=== PATIENT | female | born 1960 | race Caucasian/White ===

== ENCOUNTER 2025-01-26 12:51 | Outpatient (REF) | payer MEDICARE, MEDICAID, SELFPAY ==
--- OUTSIDE RECORDS SUMMARY | 2025-01-23 20:10 | XMS_ITS | Continuity of Care Document ---
Author Organization [facility] Address [address] [place] [address] Phone Care Team Providers Care Cable Engineer Name Role Phone Harry Carlos PA-C Emergency Provider [phone] Wendi Curtis NP-C Primary Care Provider Vladimir Hernandez MD Admit Provider Amrita Ayala MD Attending Provider Jossie Vega APRN Attending Provider Sundar Silva DO Emergency Provider Tramaine Ziegler MD Admit Provider Tramaine Ziegler MD Attending Provider [phone] Chris Pham MD Admit Provider [phone] Care Teams Patient Care Team Team Status: Active Member Role Status Dates Wendi Curtis OFFICE MACHINE SERVICER-C Primary Care Provider Active Visit Care Team Team Status: Inactive Member Role Status Dates Harry Carlos PA-C Emergency Provider Active Start: October 23, 2024 End: October 26, 2024 Wendi Curtis OFFICE MACHINE SERVICER-C Primary Care Provider Active Start: October 23, 2024 End: October 26, 2024 Vladimir Hernandez MD Admit Provider Active S tart: October 23, 2024 End: October 26, 2024 Amrita Ayala MD Attending Provider Active Start: October 23, 2024 End: October 26, 2024 Visit Care Team Team Status: Inactive Member Role Status Dates Wendi Curtis OFFICE MACHINE SERVICER-C Primary Care Provider Active Start: November 24, 2024 End: November 24, 2024 Jossie Vega APRN Attending Provider Active Start: November 24, 2024 End: November 24, 2024 Visit Care Team Team Status: Inactive Member Role Status Dates Wendi Curtis NP-C Primary Care Provider Active Start: December 27, 2024 End: December 29, 2024 Sundar Silva DO Emergency Provider Active Start: December 27, 2024 End: December 29, 2024 Tramaine Ziegler MD Admit Provider Active Start: December 27, 2024 End: December 29, 2024 Tramaine Ziegler MD Attending Provider Active St art: December 27, 2024 End: December 29, 2024 Visit Care Team Team Status: Inactive Member Role Status Dates Wendi Curtis NP-C Primary Care Provider Active Start: January 11, 2025 End: January 17, 2025 Sundar Silva DO Emergency Provider Active Start: January 11, 2025 End: January 17, 2025 Chris Pham MD Admit Provider Active Start: January 11, 2025 End: January 17, 2025 Amrita Ayala MD Attending Provider Active Start: January 11, 2025 End: January 17, 2025 Chief Complaint and Reason for Visit Chief Complaint Admit Date fall October 23, 2024 9:15p m Left leg, right leg, bilateral heels Aug ust 2024 2:29pm Shortness of Breath December 27, 2024 11:12am diff breathing January 11, 2025 11:06am Reason for Visit Admit Date Acute hypercapnic respiratory failure Ju 2024 9:15pm Acute hypokalemia October 23, 2024 9:15p m Acute kidney injury October 23, 2024 9:15p m Chronic respiratory failure with hypoxia and hypercapnia October 23, 2024 9:15pm Leukocytosis October 23, 2024 9:15p m Nicotine addiction October 23, 2024 9:15p m Pneumonia October 23, 2024 9:15p m Pulmonary hypertension October 23, 2024 9: 15pm UTI (urinary tract infection) October 23, 2024 9:15pm Wound of right lower extremity October 23, 2024 9:15pm Leg ulcer, left November 24, 2024 2:2 9pm Nonadherence to medical treatment November 24, 2024 2:29pm PAD (peripheral artery disease) November 242024 2:29pm PVD (peripheral vascular disease) November 24, 2024 2:29pm Ulcer of left heel November 24, 2024 2:2 9pm Ulcer of right heel November 24, 2024 2:2 9pm Hyperkeratosis November 24, 2024 2:2 9pm Lymphedema of both lower extremities Aug us2024 2:29pm Nicotine abuse November 24, 2024 2:2 9pm Obesity November 24, 2024 2:2 9pm Papillomatosis November 24, 2024 2:2 9pm Tobacco abuse November 24, 2024 2:2 9pm Diabetes mellitus November 24, 2024 2:2 9pm Heart failure November 24, 2024 2:2 9pm Ulcer of right lower leg November 24 2:29pm Acute exacerbation of chroni c obstructive pulmonary disease December 27, 2024 11:12am Community acquired pneumonia December 272024 11:12am Diabetes mellitus December 27, 2024 11:12am Heart failure December 27, 2024 11:12am [facility]hed[facility] of both lower [facility] 11:12am Respiratory failure December 27, 2024 11:12am Chronic respiratory failure with hypoxia January 11, 2025 11:06am COPD exacerbation January 11, 2025 11:06am Dyspnea January 11, 2025 11:06am Unable to care for self January 11, 2025 11:06am Reason for Referral Referring Provider Name Referring Provider Address Referring Provider Phone Referral Date Requested Appointment Date Referral Reason Tramaine Toney [address] [facility] [address] Work Phone: Post hospital appointment. Transportation will pick you up at this time. Tatiana Shepherd [address] [facility] [address] Work Phone: Please arrange a follow-up appointment once discharged from SNF. Vladimir Hernandez [address] [facility] [address] Work Phone: Post hospital appointment. Please call to reschedule if needed. Vladimir Hernandez [address] [id number] Work Phone: RLE wound Post hospi pina appointment. Transportation will pick you up at this time. Please arr garrick a follow-up appointment once discharged from SNF. Post hospi pina appointment. Please call to reschedule if needed. RLE wound Allergies, Adverse Reactions, Alerts Allergen Type Severity Reaction Last Updated Verified Status bee venom protein (honey bee) Allergy Unknown Anaphylaxis January 11, 2025 8:42am Yes Active Iodinated Contrast Media Allergy Unknown Anaphylaxis January 11, 2025 8:42am Yes Active Social History Smoking Status Status Start Date End Date Date of Observa tion Smokes tobacco daily (finding) January 11, 2025 8:43am Observation Status Observation Response Date of Response Legal Sex Female (finding) Sex Assigned At Female [id number] Social History Assessments Assessment Value Date Recorded SDOH Follow up December 28, 2024 4:20pm Question Answer Date Recorded Has the SDOH screening changed since admission? N December 28, 2024 4:20pm Assessment Value Date Recorded SDOH Follow up January 17, 2025 12:02pm Question Answer Date Recorded Has the SDOH screening changed since admission? N January 17, 2025 12:02pm Assessment Value Date Recorded SDOH Follow up October 26, 2024 1 2:00pm Question Answer Date Recorded Has the SDOH screening changed since admission? N October 26, 2024 12:00pm Family History Relationship Condition Age at Onset Recorded Date/T dustin mother Malignant neoplasm of skin Unknown grandparent Cerebrovascular accident (CVA) Unknown grandparent Heart disease Unknown mother Diabetes mellitus Unknown father Malignant neoplasm Unknown Unknown family member Unknown mother Hypertension Unknown Asthma Unknown Diabetes mellitus Unknown son Hypertension Unknown sister Diabetes mellitus Unknown Hypertension Unknown Problems Active Problems Medical Problem Onset Date Status DIAMANTE (acute kidney injury) Unknown Active Leg ulcer, left Unknown Active Ulcer of left heel Unknown Active Left against medical advice Unknown Acti ve UTI (urinary tract infection) Unknown Ac tive Acute hypotension Unknown Active COVID-19 virus infection Unknown Active Nicotine abuse Unknown Active Lower extremity edema Unknown Active MURRAY (obstructive sleep apnea) Unknown Ac tive Cellulitis of leg, right Unknown Active Chronic respiratory failure with hypoxia Unknown Active Acute hypercapnic respiratory failure Unknown Active Impaired mobility and ADLs Unknown Activ e Severe protein-calorie malnutrition Unknown Active Burn of abdomen wall Unknown Active Epistaxis Unknown Active Diabetic infection of right foot Unknown Active Diabetes mellitus Unknown Active Morbid obesity Unknown Active Unable to care for self Unknown Active Chronic hepatitis C without hepatic coma Unknown Active Acute and chronic respiratory failure Unknown Active CHF (congestive heart failure) Unknown A ctive Papillomatosis Unknown Active Anxiety Unknown Active Nonadherence to medical treatment Unknown Active Bacteremia Unknown Active Opioid use disorder Unknown Active Depression Unknown Active Dyspnea Unknown Active Ulcer of right heel Unknown Active Ulcer of right leg Unknown Active Rash and nonspecific skin eruption Unknown Active Atherosclerotic cardiovascular disease Unknown Active Photodermatitis due to sun Unknown Activ e Chronic acquired lymphedema Unknown Acti ve Chronic acquired lymphedema Unknown Acti ve Ventral hernia Unknown Active Hypercarbia Unknown Active Hyperglycemia Unknown Active Hypoglycemia Unknown Active Hyperkeratosis Unknown Active Leukocytosis Unknown Active Lymphedema of both lower extremities Unknown Active Weakness of both lower extremities Unknown Active Neuropathy Unknown Active Rhabdomyolysis Unknown Active Opioid use disorder, severe, dependence Unknown Active Tobacco abuse Unknown Active PVD (peripheral vascular disease) Unknown Active Acute metabolic encephalopathy Unknown A ctive Hypoxia Unknown Active PAD (peripheral artery disease) Unknown Active Head injury Unknown Active Dental abscess Unknown Active Incarcerated ventral hernia Unknown Acti ve On home oxygen therapy Unknown Active ROJAS (nonalcoholic steatohepatitis) Unknown Active COPD exacerbation Unknown Active COPD exacerbation Unknown Active Nausea and vomiting Unknown Active Elbow fracture, right Unknown Active Bulla Unknown Active Chest pain Unknown Active Chest pain Unknown Active Hypertension Unknown Active Fall Unknown Active Obesity Unknown Active Laceration of lower leg, right Unknown A ctive Candidal intertrigo Unknown Active Smoker Unknown Active Acute hypokalemia Unknown Active Inactive/Resolved Problems Medical Problem Onset Date Status Acute kidney injury Unknown Resolved Acute kidney injury Unknown Resolved Bacteremia due to Streptococcus Unknown Resolved Ulcer of left lower leg Unknown Resolved Acute exacerbation of chronic obstructive airway s disease Unknown Resolved Urinary tract infection Unknown Resolved UTI (urinary tract infection) Unknown Re solved UTI (urinary tract infection) Unknown Re solved UTI (urinary tract infection) Unknown Re solved UTI (urinary tract infection) Unknown Re solved UTI (urinary tract infection) Unknown Re solved Acute cystitis Unknown Resolved Crushing injury of index finger Unknown Resolved Nicotine addiction Unknown Resolved Group B streptococcal infection Unknown Resolved Acute hypercapnic respiratory failure Unknown Resolved Acute hypercapnic respiratory failure Unknown Resolved Acute encephalopathy Unknown Resolved COPD with exacerbation Unknown Resolved Fatigue Unknown Resolved Diabetes mellitus Unknown Resolved Laceration Unknown Resolved Heart failure Unknown Resolved Ventral hernia with bowel obstruction Unknown Resolved Fissure in skin Unknown Resolved Ulcer Unknown Resolved (HFpEF) heart failure with preserved ejection fr action Unknown Resolved Diabetic foot ulcer Unknown Resolved Diabetic foot ulcer Unknown Resolved CHF (congestive heart failure) Unknown R esolved Myocardial injury Unknown Resolved Hypoxemia Unknown Resolved Bacterial pneumonia Unknown Resolved Pulmonary hypertension Unknown Resolved Traumatic seroma of left lower leg Unknown Resolved Wound of right lower extremity Unknown R esolved Septic shock Unknown Resolved Septic shock Unknown Resolved Acute and chronic respiratory failure with hyper capnia Unknown Resolved Acute and chronic respiratory failure with hyper capnia Unknown Resolved Leukocytosis Unknown Resolved CAP (community acquired pneumonia) Unknown Resolved CAP (community acquired pneumonia) Unknown Resolved Community acquired pneumonia Unknown Res olved Lymphedema of both lower extremities Unknown Resolved Severe sepsis Unknown Resolved Acute respiratory failure with hypoxemia Unknown Resolved Ulcer of right lower leg Unknown Resolve d Ulcer of right lower leg Unknown Resolve d Respiratory failure Unknown Resolved Elevated troponin Unknown Resolved Chronic respiratory failure with hypoxia and hyp ercapnia Unknown Resolved Acute on chronic respiratory failure with hypoxi a and hypercapnia Unknown Resolved CO2 narcosis Unknown Resolved Weakness Unknown Resolved Wound, open, finger Unknown Resolved Hypoxia Unknown Resolved Sepsis Unknown Resolved Sepsis Unknown Resolved Gabapentin overdose Unknown Resolved UTI (urinary tract infection) following delivery Unknown Resolved Small bowel obstruction Unknown Resolved Altered mental status Unknown Resolved Altered mental status Unknown Resolved COPD (chronic obstructive pulmonary disease) Unk nown Resolved COPD (chronic obstructive pulmonary disease) Unk nown Resolved Acute exacerbation of chronic obstructive pulmon emilia disease Unknown Resolved Acute exacerbation of chroni c obstructive pulmonary disease (COPD) Unknown Resolved Leg wound, right Unknown Resolved Hypotension Unknown Resolved Pneumonia Unknown Resolved Laceration of scalp Unknown Resolved Laceration of index finger Unknown Resol eleni Contusion of knee, left Unknown Resolved Pickwickian syndrome Unknown Resolved Hypokalemia Unknown Resolved Acute hypokalemia Unknown Resolved Hypomagnesemia Unknown Resolved Medications Medication Status Dose Units Route Directions Qty Days St art Date Stop Date End Date Instructions Adherence Cephalexin (Keflex) 500 mg capsule Discont inued 1 GM PO Twice daily 40 10 September 08, 2017 12:00a m September 17, 2017 12:00 am September 18, 2017 12:03 am Promethazin e 25 mg tablet Discont inued 25 MG PO Q4H as needed for VOMITING September 10, 2017 12:00a m Wilbert velasco 2020 11:46 pm Buprenorphi ne-Naloxone (Suboxone) 8-2 mg film Discont inued 1 FILM BUCCAL Q12H September 11, 2017 3:13am Novem ehsan 2019 7:17p m Metformin 850 mg tablet Discont inued 850 MG PO Twice daily 60 September 12, 2017 12:00a m Febru emilia , 2019 1:21p m Prednisone 10 mg Tablet Discont inued October 23, 2017 12:00a m [facility] 2018 1:21p m Atorvastati n (Lipitor) 10 mg tablet Discont inued 10 MG PO Daily July 18, 2019 12:00a m [facility] 2021 10:11 am Glipizide (Glucotrol) 10 mg tablet Discont inued 10 MG PO Daily July 18, 2019 12:00a m [facility] 2021 10:11 am Alprazolam 0.25 mg tablet Discont inued 0.25 MG PO Daily July 18, 2019 12:00a m [facility] 2019 4:58p m Promethazin e 25 mg tablet Discont inued July 18, 2019 12:00a m [facility] 2019 2:44p m Omeprazole 20 mg capsule,del ayed release(DR/ EC) Discont inued 20 MG PO Daily July 18, 2019 12:00a [facility] 2021 10:11 am Metoprolol Succinate 25 mg tablet extended release 24 hr Discont inued 25 MG PO Daily July 18, 2019 12:00a m [facility] 2021 10:11 am Pregabalin 150 mg capsule Discont inued 150 MG PO Three times daily July 18, 2019 12:00a m [facility] 2019 4:59p m Ondansetron 4 mg tablet,disi ntegrating Discont inued 4 MG PO Three times daily as needed for nausea 6 July 18, 2019 10:23a m [facility] 2019 2:43p m Albuterol Sulfate 2.5 mg /3 mL (0.083 %) solution for nebulizatio n Discont inued 1.25 MG INHALA TION every 6 to 8 hours as needed for shortness of breath or wheezing July 18, 2019 12:00a m Novem 2019 7:15p m Clindamycin Hcl 300 mg capsule Discont inued 300 MG PO Three times daily Novemb er 2019 1:00am September 21, 2020 2:04p m Prednisone 10 mg tablet Discont inued 10 MG PO Daily 39 2020 1:00am September 21, 2020 2:05p m 60mg daily for three days, 40mg daily for three days, 20mg daily for three days, 10mg daily for three days. Cetirizine 10 mg Tablet Discont inued 10 MG PO Daily 2020 12:00a m Augus t 2021 10:12 am Hydroxyzine Hcl 50 mg Tablet Discont inued 50 MG PO Four times daily as needed for Allergy Symptoms 2020 12:00a m Augus t 2021 10:11 am Famotidine 20 mg Tablet Discont inued 20 MG PO Daily at bedtime as needed for Acid Reflux 2020 12:00a m [facility] 2020 1:24a m Ammonium Lactate 12 % Cream Discont inued 1 APPLIC TOPICA L Twice daily 2020 12:00a m Septe mber 2021 4:04p m Albuterol Sulfate (Proair Hfa) 90 mcg/actuati on Hfa Aerosol Inhaler Discont inued 2 PUFF INHALA TION Q6H as needed for Shortness Of Breath Dec 2020 12:00a m Augus t 2021 9:45a m Losartan 100 mg Tablet Discont inued 100 MG PO Daily 2020 12:00a m Augus t 2021 10:11 am Cholecalcif ghazal (Vitamin D3) (Vitamin D3) 50 mcg (2,000 unit) Capsule Discont inued 50 MCG PO Daily 2020 12:00a m Augus t 2021 10:11 am Fluticasone -Umeclidin- Vilanter (Trelegy Ellipta) 200-62.5-25 mcg blister with device Discont inued 1 INH INHALA TION Daily 2020 12:00a m Augus t 2021 7:12a m Sulfamethox azole-Trime thoprim (Bactrim Ds) 800-160 mg tablet Discont inued 1 TAB PO Twice daily 14 7 Dec 2020 12:00a m Octob er 2020 2:09p m Clindamycin Hcl 300 mg capsule Discont inued 300 MG PO Four times daily Dece er 2020 1:00am Decem ehsan 2020 1:23a m Amoxicillin -Pot Clavulanate (Augmentin) 875-125 mg tablet Discont inued 1 TAB PO Twice daily 20 Decemb er 2020 1:00am Janua ry 2021 2:22p m Gentamicin 0.1 % ointment Discont inued 1 APPLIC TOPICA L .twice weekly 30 14 Dece er 2020 1:00am Decem ehsan 2020 9:32p m apply thin layer to wounds as per wound orders Balsam [place] Oil (Venelex) ointment Discont inued 1 APPLIC TOPICA L .w/dressing s as needed for wound healing 60 14 Aprua y 2021 1:00am Febru emilia 2021 3:39p m apply to left heel as per orders Cephalexin 500 mg capsule Discont inued 500 MG PO Four times daily 40 10 Februa ry 2021 1:00am July 30, 2021 2:03p m Gentamicin 0.1 % ointment Discont inued 1 APPLIC TOPICA L .w/dressing s 30 June 20, 2021 1:00am July 30, 2021 2:03p m follow wound orders please Semaglutide (Rybelsus) 14 mg tablet Discont inued 14 MG PO Daily at 0730 Septem 2021 12:00a m Oct er 2021 11:07 am Albuterol Sulfate 2.5 mg /3 mL (0.083 %) solution for nebulizatio n Discont inued 2.5 MG INHALA TION Q4H as needed for shortness of breath or wheezing Decem ehsan 2021 2:09pm July 31, 2024 6:45a m Buprenorphi ne-Naloxone 2-0.5 mg Film Discont inued 1.5 FILM BUCCAL Twice daily Septem ehsan 2021 12:00a m Septe mber 2021 9:39a m place 1 strip/tab under (each) side of tongue Buprenorphi ne-Naloxone 8-2 mg film Discont inued 2.5 FILM SUBLIN GUAL Daily 2021 12:00a m Octob er 2022 1:15p m Prednisone 10 mg Tablet Discont inued 60 MG PO Daily Taper: Start: December 28, 2021 9:00am End: December 31, 2021 8:59am Frequency: DAILY Days: 3 Hours: 0 Dose: 60 Start: December 31, 2021 9:00am End: January 03, 2022 8:59am Frequency: DAILY Days: 3 Hours: 0 Dose: 40 Start: January 03, 2022 9:00am End: January 06, 2022 8:59am Frequency: DAILY Days: 3 Hours: 0 Dose: 20 Start: January 06, 2022 9:00am End: January 09, 2022 8:59am Frequency: DAILY Days: 3 Hours: 0 Dose: 10 36 2021 12:00a m Octob er 2021 2:03p m Please contact the information source for Taper Schedule details. Azithromyci n 500 mg tablet Discont inued 500 MG PO Daily 2 2 2021 12:00a m Octob er 2021 2:01p m Bumetanide 1 mg tablet Discont inued 1 MG PO Daily 30 2021 12:00a m Novem ehsan 2021 3:06p m Pregabalin 50 mg Capsule Discont inued 50 MG PO Three times daily 42 14 2021 12:00a m Octob er 2021 11:09 am Buprenorphi ne-Naloxone Discont inued 1.5 film buccal Twice daily 0 2021 12:00a m Octob er 2021 2:05p m Losartan 100 mg tablet Discont inued 100 MG PO Daily Novemb er 2021 12:00a m September 29, 2023 1:46p m On Hold: hold for now until follow with PCP as outpatient. Finerenone (Kerendia) 10 mg tablet Discont inued 10 MG PO Daily Novemb er 2021 12:00a m Febru emilia 2022 3:36p m End date of 03/15/22 Semaglutide (Rybelsus) 7 mg tablet Discont inued 7 MG PO Daily Novemb er 2021 12:00a m November 09, 2023 2:55p m Ergocalcife rol (Vitamin D2) (Vitamin D2) 1,250 mcg (50,000 unit) capsule Discont inued 1250 MCG PO every week 13 90 Novemb er 2021 1:00am Octob er 2022 1:15p m Cyanocobala min (Vitamin B-12) 1,000 mcg capsule Discont inued 1000 MCG PO Daily 30 Novemb er 2021 1:00am Febru emilia 2022 3:35p m Multivitami n tablet Discont inued 1 TAB PO Daily Novemb er 2021 1:00am September 22, 2022 12:17 am Loperamide (Imodium A-D) 2 mg capsule Discont inued 2 MG PO EVERY 2-3 HOURS as needed for loose stool Novemb er 2021 1:00am Febru emilia2022 3:36p m administer after each loose stool until symptoms controlled; do not exceed 8 mg per 24 hrs Cephalexin 500 mg capsule Discont inued 500 MG PO Four times daily 40 10 September 16, 2022 12:00a m Octob er 2022 1:13p m Magnesium Oxide 400 mg (241.3 mg magnesium) Tablet Discont inued 400 MG PO Daily Octobe r 2022 12:00a m October 27, 2023 3:52p m Atorvastati n 20 mg tablet Discont inued 20 MG PO Daily Octobe r 2022 12:00a m September 01, 2023 7:15a m Alprazolam 0.25 mg tablet Discont inued 0.25 MG PO Daily Octobe r 2022 12:00a m Febru emilia2023 12:43 pm Famotidine 20 mg tablet Discont inued 20 MG PO Q12H as needed for Acid Reflux Octobe r 2022 12:00a m November 09, 2023 2:53p m Promethazin e 25 mg tablet Discont inued 25 MG PO Q6H as needed for Nausea Octobe r 5th, 2023 12:00a m Febru emilia 16th, 2024 12:43 pm Bumetanide 1 mg tablet [facility]cont [facility] 12:00a m August 13, 2023 11:09 am Buspirone 15 mg tablet Discont inued 15 [facility]a [facility] Empaglifloz in (Jardiance) 10 mg tablet [facility]cont inued 10 [facility] 12:00a m Septe [facility] 2024 10:49 am Fluticasone -Umeclidin- Vilanter (Trelegy Ellipta) 200-62.5-25 mcg blister with device Active 1 INH INHALA TION Daily [facility] r 2022 12:00a m Complies with drug therapy Sodium Hypochlorit e (Dakin's Solution) 0.25 % solution Discont inued 1 APPLIC TOPICA L .3 times weekly 473 28 [facility] 2022 1:00am [facility] 2024 3:29p m cleanse leg ulcers as per wound orders Silver Sulfadiazin e (Silvadene) 1 % cream Discont inued 1 APPLIC TOPICA L .3 times weekly 50 28 [facility] 2022 1:00am September 01, 2023 7:12a m apply a thin layer to the bilateral leg ulcers as per wound orders Cephalexin 500 mg capsule Discont inued 500 MG PO Twice daily 28 14 [facility] 2022 1:00am 2023 2:15p m Silver Sulfadiazin e (Ssd) 1 % cream Discont inued 1 APPLIC TOPICA L .3 times/week 85 28 Aprr y 2023 1:00am September 01, 2023 7:13a m apply a 1.5 mm thickness to both leg ulcers and the left 2nd finger wound Sodium Hypochlorit e (Dakin's Solution) 0.25 % solution Discont inued 1 APPLIC TOPICA L .3 times/week 473 r y 2023 1:00am September 01, 2023 7:13a m cleanse all wounds as per wound orders Cephalexin 500 mg capsule Discont inued 500 MG PO Twice daily 2023 1:00am Febru 2023 12:43 pm Silver Sulfadiazin e (Silvadene) 1 % cream Discont inued 1 APPLIC TOPICA L Daily 85 June 30, 2023 12:00a m September 01, 2023 7:13a m thin layer to the left heel or any other open ulcers on the lower legs Cephalexin 500 mg capsule Discont inued 500 MG PO Q8H 7 Decemb er 2022 1:00am Aprua 2023 2:15p m Cephalexin 750 mg capsule Discont inued 750 MG PO Every 12 hours 06 02August 13, 2023 12:00a m September 01, 2023 7:11a m Methylpredn isolone (Medrol (Geo)) 4 mg tablets,dos e pack Discont inued 0 PO .COMPLEX August 13, 2023 12:00a m September 01, 2023 7:12a m orally per package directions Bumetanide 1 mg tablet Discont inued 1 MG PO Daily 60 August 13, 2023 11:08a m September 29, 2023 1:33p m On Hold: hold for now until follow with PCP as outpatient. Rifaximin (Xifaxan) 550 mg tablet Discont inued 550 MG PO Twice daily October 27, 2023 12:00a m October 23, 2024 10:28 pm Promethazin e 25 mg tablet Discont inued 25 MG PO Every 6 hours as needed for nausea and vomiting October 27, 2023 12:00a m July 31, 2024 6:45a m Dulaglutide (Trulicity) 0.75 mg/0.5 mL pen injector Discont inued 0.75 MG SUBCUT every week October 27, 2023 12:00a m Febru 2024 3:27p m Ibuprofen 800 mg tablet Discont inued 800 MG PO Three times daily as needed for pain October 27, 2023 12:00a m Febru 2024 11:13 am Tirzepatide (Mounjaro) 2.5 mg/0.5 mL pen injector Discont inued 10 MG SUBCUT every week October 27, 2023 12:00a m [facility] 2024 10:39 am Potassium Chloride (Klor-Con M20) 20 mEq tablet,ER particles/c rystals Discont inued 20 MEQ PO Daily October 27, 2023 12:00a m August 05, 2024 12:59 pm Paroxetine Hcl 20 mg tablet Discont inued 20 MG PO Daily October 27, 2023 12:00a m [facility] 2023 4:40p m Nystatin-Tr iamcinolone 100,000-0.1 unit/g-% cream Discont inued 1 APPLIC TOPICA L Twice daily as needed for rash October 27, 2023 12:00a m July 31, 2024 6:45a m Nystatin 100,000 unit/gram powder Discont inued 1 APPLIC TOPICA L Twice daily October 27, 2023 12:00a m July 31, 2024 6:45a m Glipizide 10 mg tablet Discont inued 10 MG PO Daily October 27, 2023 12:00a m [facility] 2024 10:50 am Cetirizine (24hour Allergy) 10 mg tablet Discont inued 10 MG PO Daily as needed for allergy symptoms October 27, 2023 12:00a m [facility] 2024 11:32 am 10 mg orally PRN; Ferrous Sulfate 325 mg (65 mg iron) tablet,malini yed release (DR/EC) Discont inued 325 MG PO Daily October 27, 2023 12:00a m [facility] 2023 1:50p m Diphenoxyla te-Atropine 2.5-0.025 mg tablet Discont inued 1 TAB PO Four times daily as needed for diarrhea October 27, 2023 12:00a m Febru emilia 2024 3:26p m Levofloxaci n 750 mg tablet Discont inued 750 MG PO Daily 5 5 October 30, 2023 12:00a m November 09, 2023 2:49p m Diphenoxyla te-Atropine 2.5-0.025 mg tablet Discont inued 1 TAB PO Daily July 31, 2024 12:00a m October 24, 2024 11:10 am Paroxetine Hcl 30 mg tablet Discont inued 30 MG PO Daily July 31, 2024 12:00a m [facility] 2024 10:50 am Nicotine 21 mg/24 hr Patch 24 Hour Discont inued 21 MG TRANSD ERML Daily August 05, 2024 12:00a m [facility] 2024 11:32 am Pregabalin 75 mg Capsule Discont inued 75 MG PO Three times daily 9 August 05, 2024 12:00a m October 23, 2024 10:29 pm Buprenorphi ne-Naloxone 8-2 mg film Discont inued 1 FILM SUBLIN GUAL Twice daily 6 August 05, 2024 12:58p m [facility] 2024 2:30p m Alprazolam 0.25 mg tablet Discont inued 0.25 MG PO Daily August 06, 2024 12:00a m August 08, 2024 10:25 am Alprazolam 0.25 mg tablet Discont inued 0.25 MG PO Every 12 hours as needed for anxiety 09 20August 08, 2024 10:25a m [facility] 2024 1:23p m Prednisone 10 mg tablet Discont inued 10 MG PO As Directed August 10, 2024 12:00a m October 23, 2024 10:27 pm Take 3 pills for 4 days Take 2 pills for 4 days Take 1 pill for 4 days then stop Potassium Chloride 20 mEq tablet extended release Discont inued 20 MEQ PO Daily August 10, 2024 12:00a m [facility] 2024 11:32 am Pregabalin 150 mg capsule Discont inued 150 MG PO Three times daily 2024 12:00a m [facility] 2024 2:30p m Guaifenesin 600 mg tablet extended release 12hr Active 600 MG PO Twice daily as needed for cough 2024 12:00a m Complies with drug therapy Tirzepatide (Mounjaro) 10 mg/0.5 mL pen injector Active 10 MG SUBCUT SA@0900 2024 12:00a m Complies with drug therapy Ibuprofen 800 mg tablet Discont inued 800 MG PO Three times daily as needed for pain 2024 12:00a m [facility] 2024 1:49p m Methylpredn isolone 16 mg Tablet Discont inued 32 MG PO Every morning 10 5 2024 12:00a m [facility] 2024 6:44p m Cefpodoxime 200 mg tablet Discont inued 200 MG PO Twice daily 4 2 2024 12:00a m [facility] 2024 6:44p m must administer with a meal/food; next dose 12/30/24 am Potassium Chloride 10 mEq capsule, extended release Active 10 MEQ PO Twice daily 60 30 2024 12:00a m Complies with drug therapy Paroxetine Hcl (Paxil) 30 mg tablet Active 30 MG PO Every morning 30 2024 12:00a m Complies with drug therapy Furosemide 20 mg tablet Active 20 MG PO Twice daily 0 30 2024 10:33a m Complies with drug therapy Alprazolam 0.25 mg tablet Discont inued 0.25 MG PO Every 12 hours as needed for anxiety 14 7 2024 1:23pm [facility] 2024 1:46p m Nicotine 21 mg/24 hr patch 24 hour Active 2 PATCH TRANSD ERML Daily 56 2024 12:00a m Complies with drug therapy Promethazin e 25 mg tablet Active 25 MG PO Twice daily 60 30 2024 1:25pm Complies with drug therapy Benzonatate 100 mg Capsule Active 200 MG PO Three times daily as needed for Cough 0 2024 12:00a m Unknown Bisacodyl 5 mg Tablet,Malini yed Release (Dr/Ec) Active 10 MG PO Daily as needed for Constipatio n 0 2024 12:00a m Unknown Alprazolam 0.25 mg tablet Active 0.25 MG PO Every 12 hours as needed for anxiety 4 2 2024 1:46pm Unknown Levofloxaci n 750 mg tablet Active 750 MG PO Daily 5 5 2024 12:00a m Unknown Prednisone 10 mg tablet Active 10 MG PO As Directed 21 Septem ehsan 30th, 2025 12:00a m see taper instructions Take 40 mg (4 tabs) for 3 days then Take 20 mg ( 2 tabs) for 3 days then Take 10 mg ( 1 tab) for 3 days to finish Unknown Pregabalin 150 mg capsule Active 150 MG PO Three times daily 6 2 2024 2:29pm Unknown Buprenorphi ne-Naloxone 8-2 mg film Active 1 FILM SUBLIN GUAL Twice daily 4 2 2024 2:29pm Unknown Lisinopril 10 mg tablet Discont inued 10 MG PO Daily July 30, 2017 12:00a m July 03, 2018 12:05 pm Zolpidem 5 mg tablet Discont inued July 30, 2017 12:00a m July 30, 2017 8:08p m Pregabalin (Lyrica) 150 mg capsule Discont inued 150 MG PO Three times daily July 30, 2017 12:00a m August 04, 2017 8:47a m Hydrocodone -Acetaminop hen (Vicodin) 5-300 mg Tablet Discont inued 1 TAB PO EVERY 4-6 HOURS as needed for Pain July 30, 2017 12:00a m July 31, 2017 10:44 am Buprenorphi ne-Naloxone (Suboxone) 8-2 mg Film Discont inued 0.5 FILM BUCCAL Q24H July 30, 2017 12:00a m August 04, 2017 8:48a m 1/2 FILM STRIP DAILY Hydrocodone -Acetaminop hen 10-325 mg tablet Discont inued 1 TAB PO Q6H as needed for Pain July 31, 2017 12:00a m August 04, 2017 8:46a m Promethazin e 25 mg tablet Discont inued 25 MG PO Q4H as needed for Nausea And Vomiting July 31, 2017 12:00a m August 04, 2017 8:47a m Zolpidem 5 mg tablet Discont inued 5 MG PO Daily at bedtime July 31, 2017 12:00a m August 04, 2017 8:47a m Glycopyrrol ate-Formote rol 9-4.8 mcg HFA aerosol inhaler Discont inued 2 PUFF INHALA TION Twice daily July 31, 2017 12:00a m August 18, 2017 12:05 pm Albuterol Sulfate 90 mcg/actuati on HFA aerosol inhaler Discont inued 1 PUFF INHALA TION Four times daily as needed for Shortness Of Breath July 31, 2017 12:00a m [facility] 2020 11:41 pm Cephalexin (Keflex) 500 mg capsule Discont inued 500 MG PO Twice daily August 04, 2017 12:00a m August 18, 2017 12:05 pm Buprenorphi ne-Naloxone (Suboxone) 8-2 mg Film Discont inued 0.5 FILM BUCCAL Q24H 0 August 04, 2017 8:48am September 11, 2017 3:13a m 1/2 FILM STRIP DAILY Pregabalin 150 mg capsule Discont inued 150 MG PO Three times daily August 18, 2017 12:00a m [facility] 2019 2:44p m Azithromyci n (Zithromax) 250 mg tablet Discont inued 250 MG PO Daily August 18, 2017 12:00a m September 07, 2017 10:07 pm ZPAK-2 tabs day 1, the 1 tab daily for 4 days Prednisone 20 mg tablet Discont inued 60 MG PO Daily 15 August 18, 2017 12:00a m September 07, 2017 10:07 pm administer with food or milk Albuterol Sulfate 2.5 mg /3 mL (0.083 %) solution for nebulizatio n Discont inued 2.5 MG INHALA TION Q6H as needed for shortness of breath or wheezing August 18, 2017 12:00a m [facility] 2021 2:09p m Wixela Discont inued 1 PUFF INHALA TION Twice daily 2018 1:00am July 02, 2018 10:35 am Fluticasone Propionate 50 mcg/actuati on spray,suspe nsion Discont inued 1 - 2 SPRAY INTRAN DEMARIO Daily as needed for Sinus Symptoms 2018 1:00am October 12, 2018 2:23a m Azithromyci n 250 mg tablet Discont inued 250 MG PO Daily 5 2018 1:00am June 21, 2018 1:00a m June 22, 2018 1:02a m start on day 2 of therapy Cefdinir 300 mg capsule Discont inued 300 MG PO Twice daily 10 5 2018 1:00am June 21, 2018 1:00a m June 22, 2018 1:02a m Take one pill tonight Fluticasone Propion-Miles meterol (Advair Diskus) 100-50 mcg/dose blister with device Discont inued 1 PUFF INHALA TION Twice daily July 02, 2018 12:00a m July 03, 2018 12:09 pm Metformin 500 mg tablet extended release 24 hr Discont inued 2 TAB PO Twice daily July 02, 2018 12:00a m September 21, 2020 2:04p m Furosemide 40 mg tablet Discont inued 40 MG PO Daily July 02, 2018 12:00a m July 03, 2018 12:09 pm Oseltamivir 75 mg Capsule Discont inued 75 MG PO Twice daily July 03, 2018 12:00a m October 12, 2018 2:23a m Prednisone 10 mg tablet Discont inued 10 MG PO Daily 39 July 03, 2018 12:00a m October 12, 2018 2:23a m take 60mg (6 tabs aday) for 3 days, then 40mg (4tabs) for 3 days, then 20mg (2tabs) for 3 days, then 10mg (1tab) for 3 days. Furosemide 40 mg tablet Discont inued 40 MG PO Daily July 03, 2018 12:08p m [facility] 2021 10:11 am Fluticasone Propion-Miles meterol 100-50 mcg/dose blister with device Discont inued 1 PUFF INHALA TION Twice daily 05 19July 03, 2018 12:08p m [facility] 2020 11:44 pm Prednisone 10 mg Tablet Discont inued 60 MG PO Daily August 20, 2018 12:00a m October 12, 2018 2:23a m administer with food or milk Albuterol Sulfate (Proventil Hfa) 90 mcg/actuati on Hfa Aerosol Inhaler Discont inued 2 PUFF INHALA TION EVERY 4-6 HOURS as needed for Shortness Of Breath Or Wheezing August 20, 2018 12:00a m October 12, 2018 2:23a m with spacer Fluconazole (Diflucan) 150 mg tablet Discont inued 150 MG PO every week October 12, 2018 12:00a m [facility] 2018 10:31 pm Hydrocortis one 2.5 % cream Discont inued 1 APPLIC TOPICA L Twice daily 20 October 12, 2018 12:00a m [facility] 2021 10:11 am Apply to rash on left arm Nicotine 21 mg/24 hr Patch 24 Hour Discont inued 1 EACH TRANSD ERML Daily 30 December 04, 2018 12:00a m [facility]2019 2:43p m Nicotine (Polacrilex ) 4 mg lozenge Discont inued 4 MG BUCCAL Q1H as needed for nicotine cravings December 04, 2018 12:00a m [facility]2019 2:43p m do not exceed more than 20 davy per day Methylpredn isolone (Medrol) 16 mg tablet Discont inued 16 MG PO Daily December 04, 2018 12:00a m ehsan 2019 7:16p m Pregabalin 150 mg capsule Discont inued 150 MG PO Three times daily 2019 12:00a m [facility]2021 2:30p m Fluoxetine (Prozac) 40 mg capsule Discont inued 40 MG PO Every morning 2019 12:00a m [facility]2020 11:43 pm Buspirone 15 mg tablet Discont inued 15 MG PO Twice daily 2019 12:00a m [facility] 2021 10:12 am Fluoxetine 20 mg capsule Discont inued 40 MG PO Daily at bedtime 2019 12:00a m [facility] 2020 1:24a m Cephalexin (Keflex) 500 mg capsule Discont inued 500 MG PO Twice daily 6 3 2019 12:00a m Novem ehsan 2019 7:16p m Albuterol Sulfate 2.5 mg /3 mL (0.083 %) solution for nebulizatio n Discont inued Novemb er 2019 1:00am ehsan 2019 7:17p m Alprazolam 0.25 mg tablet Discont inued 0.25 MG PO Daily Novemb er 2019 1:00am Decem ehsan 2020 1:04p m Buprenorphi ne-Naloxone 8-2 mg film Discont inued 1 FILM SUBLIN GUAL Twice daily Novemb er 2019 1:00am Decem ehsan 2020 3:48p m Sulfamethox azole-Trime thoprim (Bactrim Ds) 800-160 mg tablet Discont inued 1 TAB PO Twice daily 14 7 Novemb er 2019 1:00am Novem ehsan 2019 4:36p m Cephalexin (Keflex) 500 mg capsule Discont inued 500 MG PO Three times daily 21 7 Novemb er 2019 1:00am Novem ehsan 2019 4:36p m Sulfamethox azole-Trime thoprim (Bactrim Ds) 800-160 mg tablet Discont inued 1 TAB PO Every 12 hours 20 July 18, 2020 12:00a m September 21, 2020 2:05p m Cephalexin 500 mg capsule Discont inued 500 MG PO Q6H 40 July 18, 2020 12:00a m September 21, 2020 2:04p m Semaglutide (Rybelsus) 7 mg tablet Discont inued 14 MG PO Daily at 0630 September 21, 2020 12:00a m [facility] 2021 4:04p m Stop date Mupirocin 2 % ointment Discont inued 1 APPLIC TOPICA L Twice daily August 18, 2020 12:00a m September 21, 2020 2:05p m Prednisone 20 mg tablet Discont inued 40 MG PO Daily 8 November 21, 2020 12:00a m [facility] 2020 11:45 pm Azithromyci n 250 mg tablet Discont inued 250 MG PO Daily 4 November 21, 2020 12:00a m [facility] 2020 11:42 pm start on day 2 of therapy Amoxicillin -Pot Clavulanate (Augmentin) 875-125 mg tablet Discont inued 1 TAB PO Twice daily 20 10 Decemb er 2020 1:00am Dece 2020 9:31p m Gentamicin 0.1 % Ointment Discont inued 1 APPLIC TOPICA L Daily 15 Decemb er 2020 1:00am July 30, 2021 2:03p m Docusate Sodium (Dok) 100 mg Capsule Discont inued 100 MG PO Twice daily 0 [facility] 2020 1:00am [facility] 2021 10:11 am Nicotine 21 mg/24 hr Patch 24 Hour Discont inued 1 EACH TRANSD ERML Daily 0 [facility] 2020 1:00am Dece ehsan 2020 9:32p m Insulin Detemir U-100 (Levemir Flextouch U100 Insulin) 100 unit/mL (3 mL) Insulin Pen Discont inued 15 UNITS SUBCUT Every morning 0 [facility] 2020 1:00am [facility] 3:58p m Polyethylen e Glycol 3350 (Miralax) 17 gram Powder In Packet Discont inued 17 GM PO Daily 0 [facility] 2020 1:00am [facility] t 2021 10:11 am Sennosides (Senna Lax) 8.6 mg Tablet Discont inued 2 TAB PO Twice daily as needed for Constipatio n 0 [facility] 2020 1[facility]am [facility] 3:58p m Alprazolam 0.25 mg tablet Discont inued 0.25 MG PO Daily as needed for Anxiety 3 3 [facility] 2020 1:04pm [facility] 2021 7:08a m Buprenorphi ne-Naloxone 8-2 mg film Discont inued 1 FILM SUBLIN GUAL Twice daily 10 5 [facility] 11:33 am Further refills of this LONG STANDING medication must be per [facility] staff. Cephalexin 500 mg capsule Discont inued 1000 MG PO Twice daily 28 7 [facility] 2020 1:00am Janua ry 2021 2:22p m Ibuprofen 800 mg tablet Discont inued 800 MG PO Three times daily as needed for Pain December 04, 2021 12:00a m Novem ehsan 2021 9:27p m Promethazin e 25 mg tablet Discont inued 25 MG PO every 6 to 8 hours as needed for Nausea December 04, 2021 12:00a m 2021 3:06p m Fluoxetine 40 mg capsule Discont inued 40 MG PO Daily December 04, 2021 12:00a m October 27, 2023 5:00p m Amoxicillin -Pot Clavulanate 875-125 mg Tablet Discont inued 1 TAB PO Twice daily 03 25December 08, 2021 12:00a m [facility]2021 3:28p m Furosemide (Lasix) 40 mg tablet Discont inued 40 MG PO Daily December 08, 2021 12:00a m [facility]2021 3:58p m Potassium Chloride 10 mEq tablet extended release Discont inued 10 MEQ PO Daily December 08, 2021 12:00a m [facility]2021 3:57p m Dexamethaso ne 6 mg Tablet Discont inued 6 MG PO Daily 08 22December 13, 2021 12:00a m [facility] 2021 3:54p m Furosemide (Lasix) 40 mg tablet Discont inued 20 MG PO Daily 2021 3:57pm [facility]2021 2:30p m Cetirizine 10 mg Tablet Discont inued 10 MG PO Daily 2021 12:00a m Febru 2022 3:36p m Glipizide 10 mg Tablet Discont inued 10 MG PO Daily 2021 12:00a m [facility] 2021 3:06p m Hydroxyzine Hcl 50 mg Tablet Discont inued 50 MG PO Four times daily as needed for Anxiety 2021 12:00a m [facility] 2021 11:10 am Alprazolam 0.25 mg Tablet Discont inued 0.25 MG PO Daily 2021 12:00a m [facility] 2021 9:22p m Famotidine 20 mg Tablet Discont inued 20 MG PO Q12H as needed for Acid Reflux 2021 12:00a m Febru emilia2022 3:35p m Magnesium Oxide 400 mg (241.3 mg magnesium) Tablet Discont inued 400 MG PO Daily 2021 12:00a m Febru emilia , 2023 3:36p m Ergocalcife rol (Vitamin D2) 1,250 mcg (50,000 unit) Capsule Discont inued 1250 MCG PO every Thursday and 2021 12:00a m [facility] 2021 11:02 am TWICE A WEEK Albuterol Sulfate (Proair Hfa) 90 mcg/actuati on Hfa Aerosol Inhaler Active 2 PUFF INHALA TION Q6H as needed for Shortness Of Breath 2021 12:00a m Complies with drug therapy Losartan 100 mg Tablet Discont inued 100 MG PO Daily 2021 12:00a m [facility] 2021 7:09a m Buspirone 15 mg Tablet Discont inued 15 MG PO Twice daily 2021 12:00a m Febru 2022 3:26p m Omeprazole 20 mg Tablet,Malini yed Release (Dr/Ec) Discont inued 20 MG PO Daily 2021 12:00a m Oct[facility] er 2021 11:10 am Metoprolol Succinate 25 mg Capsule,Spr inkle,Er 24hr Discont inued 25 MG PO Daily 2021 12:00a m [facility] 2021 11:06 am Fluticasone -Umeclidin- Vilanter (Trelegy Ellipta) 200-62.5-25 mcg Blister With Device Discont inued 1 INH INHALA TION Daily 2021 12:00a m [facility] emilia2022 3:36p m Metoprolol Tartrate 25 mg tablet Discont inued 25 MG PO Twice daily Octobe r 2021 12:00a m September 29, 2023 1:33p m On Hold: hold for now until follow with PCP as outpatient. Pregabalin 150 mg Capsule Discont inued 150 MG PO Three times daily Octobe r 2021 12:00a m [facility] er 2021 12:49 pm Atorvastati n 10 mg tablet Discont inued 10 MG PO Daily Octobe r 2021 12:00a m [facility] ehsan 2022 4:27p m Cephalexin 500 mg capsule Discont inued 500 MG PO Twice daily 4 2 Janobe r 2021 12:00a m Novem ehsan 2021 9:25p m Pregabalin 150 mg Capsule Discont inued 150 MG PO Three times daily 30 10 Janobe r 2021 12:49p m August 05, 2024 12:59 pm Sulfamethox azole-Trime thoprim (Bactrim Ds) 800-160 mg Tablet Discont inued 1 TAB PO Twice daily 2022 1:00am September 22, 2022 12:18 am Cephalexin 500 mg Capsule Discont inued 500 MG PO Four times daily 2022 1:00am September 22, 2022 12:11 am Buprenorphi ne-Naloxone 8-2 mg film Discont inued 1 FILM SUBLIN GUAL Twice daily 2023 1:00am August 05, 2024 12:58 pm Azithromyci n 250 mg Tablet Discont inued 500 MG PO Every evening 6 3 ua 2023 1:00am June 30, 2023 2:38p m Cefuroxime Axetil 500 mg tablet Discont inued 500 MG PO Twice daily 6 3 2023 1:00am June 30, 2023 2:38p m Furosemide 20 mg tablet Discont inued 20 MG PO Daily September 29, 2023 12:00a m [facility] 2024 10:34 am Sodium Hypochlorit e (Dakin's Solution) 0.25 % solution Discont inued 1 APPLIC TOPICA L .3 times weekly 473 28 Octobe r 2023 12:00a m Novem ehsan 2023 2:40p m cleanse ble ulcers as per wound care orders Alprazolam 0.25 mg tablet Discont inued 0.25 MG PO Daily September 01, 2023 12:00a m November 11, 2023 4:17p m Atorvastati n 40 mg tablet Active 40 MG PO Daily September 01, 2023 12:00a m Complies with drug therapy Cefdinir 300 mg capsule Discont inued 300 MG PO Twice daily 10 5 September 03, 2023 12:00a m September 29, 2023 1:34p m Bumetanide 1 mg tablet Discont inued 1 MG PO Daily November 09, 2023 12:00a m 2024 3:25p m Guaifenesin (Mucinex) 600 mg Tablet Extended Release 12hr Discont inued 600 MG PO Twice daily November 11, 2023 12:00a m October 23, 2024 10:27 pm Prednisone 20 mg Tablet Discont inued 40 MG PO Daily 6 3 November 11, 2023 12:00a m [facility] 2023 5:05a m Levofloxaci n 750 mg tablet Discont inued 750 MG PO Daily 5 November 11, 2023 12:00a m [facility] 2023 5:05a m Alprazolam 0.25 mg tablet Discont inued 0.25 MG PO Daily 6 6 November 11, 2023 4:17pm August 05, 2024 12:59 pm Bupropion Hcl 150 mg tablet extended release 24 hr Discont inued 150 MG PO Every morning 2023 12:00a m August 03, 2024 6:35p m Nicotine 21 mg/24 hr Patch 24 Hour Discont inued 21 MG TRANSD ERML Daily 28 2023 12:00a m July 31, 2024 6:45a m Levofloxaci n 750 mg tablet Discont inued 750 MG PO Daily at bedtime 5 5 2023 12:00a m [facility] 2023 2:40p m Ferrous Sulfate 325 mg (65 mg iron) tablet,malini yed release (DR/EC) Discont inued 325 MG PO Q48H 0 360 2023 1:49pm [facility] 2024 11:32 am Cyanocobala min (Vitamin B-12) 1,000 mcg capsule Discont inued 1000 MCG PO Daily 60 2023 12:00a m 2024 3:26p m Ergocalcife rol (Vitamin D2) 1,250 mcg (50,000 unit) capsule Discont inued 75034 UNIT PO every week 8 60 2023 12:00a m Febru emilia 2024 3:27p m Prednisone 20 mg tablet Discont inued 40 MG PO Daily 4 2 2024 1:00am June 27, 2024 1:07p m days 11-21 of therapy Cefuroxime Axetil 500 mg tablet Discont inued 500 MG PO Twice daily 10 5 2024 1:00am June 27, 2024 1:07p m unable Discont inued 1 TAB .Route As Directed October 23, 2024 12:00a m [facility] 2024 10:18 am unable to obtain at this time. Pt cannot provide. 10/23/24 Promethazin e 25 mg tablet Discont inued 25 MG PO Twice daily October 23, 2024 12:00a m [facility] 2024 1:26p m Pregabalin 75 mg Capsule Discont inued 150 MG PO Three times daily October 23, 2024 12:00a m [facility] 2024 10:18 am Magnesium Oxide 400 mg (241.3 mg magnesium) Tablet Discont inued 400 MG PO Twice daily 60 30 October 26, 2024 12:00a m [facility] 2024 11:32 am Doxycycline Hyclate 100 mg Tablet Discont inued 100 MG PO Twice daily 10 October 26, 2024 12:00a m [facility] 2024 2:36p m Cefuroxime Axetil 500 mg tablet Discont inued 500 MG PO Twice daily 10 October 26, 2024 12:00a m [facility] 2024 2:36p m Immunizations Immunization Event Date Not Given Reason Dose Number [employer] Lot Number Vaccine Information Statement (VIS) Detail Administration Location COVID-19 mRNA-1273 (Moderna) December 04, 2020 COVID-19 mRNA-1273 (Moderna) January 08, 2021 Pneumococcal Polysacc. Vaccine, 23 valent January 08, 2024 [id number] [facility] Quadrivalent Influenza January 31, 2022 [id number] [facility] Tetanus, Diphtheria, Pertussis (Tdap) June 27, 2021 [id number] [facility] Medical Equipment Device Date Implanted Device Details STRATTICE 10 X 16CM July 30, 2017 Procedures Procedure Date Performed Status XR chest 2V* December 27, 2024 8:48am compl eted Blood Culture December 27, 2024 completed Blood Culture December 27, 2024 completed XR chest 1V portable January 11, 2025 9:10am completed CT chest wo con January 14, 2025 9:12am comp leted Aerobic Culture January 11, 2025 completed Gram Stain January 11, 2025 completed XR tibia fibula RT 2V* October 23, 2024 4:11pm com pleted CT head/brain wo con October 23, 2024 4:12pm compl eted CT cervical spine wo con October 23, 2024 4:12pm c ompleted XR chest 1V portable October 23, 2024 4:12pm compl eted Blood Culture October 23, 2024 completed Blood Culture October 23, 2024 completed Urine Culture October 23, 2024 completed Nasal Screen MRSA/MSSA October 24, 2024 completed Respiratory Panel (PCR) October 24, 2024 complete d Relevant Diagnostic Tests and/or Laboratory Data Laboratory Results Test Collection Date/Time Result Date/Time Result Interpretation Reference Range Result Comment Performing Site Correcte d White Blood Count October 26, 2024 4:47am October 26, 2024 5:30am 11.5 10*3/uL 3.8-11.6 [facility] [id number] [address] [place], [place] [id number] Correcte d White Blood Count December 27, 2024 9:05am December 27, 2024 9:34am 14.6 10*3/uL Above high normal 3.8-11.6 [facility] [id number] [address] [place] [address] Correcte d White Blood Count January 17, 2025 9:00am January 17, 2025 9:10am 17.7 10*3/uL Above high normal 3.8-11.6 [facility] [id number] [address] [place] [address] Uncorrec marycruz WBC Count October 26, 2024 4:47am October 26, 2024 5:30am 11.5 10*3/uL 3.8-11.6 [facility] [id number] [address] [place] [address] Uncorrec marycruz WBC Count December 27, 2024 9:05am December 27, 2024 9:34am 14.6 10*3/uL Above high normal 3.8-11.6 [facility] [id number] [address] [facility] [address] Uncorrec marycruz WBC Count January 17, 2025 9:00am January 17, 2025 9:10am 17.7 10*3/uL Above high normal 3.8-11.6 [facility] [id number] [address] [facility] [address] Red Blood Count October 26, 2024 4:47am October 26, 2024 5:30am 4.33 10*6/uL 3.60-5.00 [facility] [id number] [address] [facility] [address] Red Blood Count December 27, 2024 9:05am December 27, 2024 9:34am 4.41 10*6/uL 3.60-5.00 [facility] [id number] [address] [facility] [address] Red Blood Count January 17, 2025 9:00am January 17, 2025 9:10am 4.03 10*6/uL 3.60-5.00 [facility] [id number] [address] [facility] [address] Hemoglob in October 26, 2024 4:47am October 26, 2024 5:30am 11.8 g/dL 11.8-15.4 [facility] [id number] [address] [facility] [address] Hemoglob in December 27, 2024 9:05am December 27, 2024 9:34am 12.2 g/dL 11.8-15.4 [facility] [id number] [address] [facility] [address] Hemoglob in January 17, 2025 9:00am January 17, 2025 9:10am 11.3 g/dL Below low normal 11.8-15.4 [facility] [id number] [address] [facility] [address] Hematocr it October 26, 2024 4:47am October 26, 2024 5:30am 36.4 % 34.0-46.4 [facility] [id number] [address] [facility] [address] Hematocr it December 27, 2024 9:05am December 27, 2024 9:34am 36.8 % 34.0-46.4 [facility] [id number] [address] [facility] [address] Hematocr it January 17, 2025 9:00am January 17, 2025 9:10am 35.1 % 34.0-46.4 [facility] [id number] [address] [facility] [address] Mean Corpuscu lar Volume October 26, 2024 4:47am October 26, 2024 5:30am 84.1 fL 80-100 [facility] [id number] [address] [facility] [address] Mean Corpuscu lar Volume December 27, 2024 9:05am December 27, 2024 9:34am 83.5 fL 80-100 [facility] [id number] [address] [facility] [address] Mean Corpuscu lar Volume January 17, 2025 9:00am January 17, 2025 9:10am 87.3 fL 80-100 [facility] [id number] [address] [facility] [address] Mean Corpuscu lar Hemoglob in October 26, 2024 4:47am October 26, 2024 5:30am 27.2 pg 24.7-34.3 [facility] [id number] [address] [facility] [address] Mean Corpuscu lar Hemoglob in December 27, 2024 9:05am December 27, 2024 9:34am 27.7 pg 24.7-34.3 [facility] [id number] 1[address] [facility] [address] Mean Corpuscu lar Hemoglob in January 17, 2025 9:00am January 17, 2025 9:10am 28.1 pg 24.7-34.3 [facility] [id number] [address] [facility] [address] Mean Corpuscu lar Hemoglob in [facility] October 26, 2024 4:47am October 26, 2024 5:30am 32.3 g/dL 32.0-35.0 [facility] [id number] [address] [facility] [address] Mean Corpuscu lar Hemoglob in [facility] December 27, 2024 9:05am December 27, 2024 9:34am 33.2 g/dL 32.0-35.0 [facility] [id number] [address] [facility] [address] Mean Corpuscu lar Hemoglob in [facility] January 17, 2025 9:00am January 17, 2025 9:10am 32.2 g/dL 32.0-35.0 [facility] [id number] [address] [facility] [address] Red Cell Distribu tion Width October 26, 2024 4:47am October 26, 2024 5:30am 15.3 % 11.9-15.3 [facility] [id number] [address] [facility] [address] Red Cell Distribu tion Width December 27, 2024 9:05am December 27, 2024 9:34am 17.6 % Above high normal 11.9-15.3 [facility] [id number] [address] [facility] [address] Red Cell Distribu tion Width January 17, 2025 9:00am January 17, 2025 9:10am 18.1 % Above high normal 11.9-15.3 [facility] [id number] [address] [facility] [address] Platelet Count October 26, 2024 4:47am October 26, 2024 5:30am 244 10*3/uL 150-450 [facility] [id number] [address] [facility] [address] Platelet Count December 27, 2024 9:05am December 27, 2024 9:34am 470 10*3/uL Above high normal 150-450 [facility] [id number] [address] [facility] [address] Platelet Count January 17, 2025 9:00am January 17, 2025 9:10am 413 10*3/uL 150-450 [facility] [id number] [address] [facility] [address] Mean Platelet Volume October 26, 2024 4:47am October 26, 2024 5:30am 9.0 fL 6.3-10.7 [facility] [id number] [address] [facility] [address] Mean Platelet Volume December 27, 2024 9:05am December 27, 2024 9:34am 7.7 fL 6.3-10.7 [facility] [id number] [address] [facility] [address] Mean Platelet Volume January 17, 2025 9:00am January 17, 2025 9:10am 7.6 fL 6.3-10.7 [facility] [id number] [address] [facility] [address] Monocyte Distribu tion Width October 23, 2024 5:53pm October 23, 2024 6:08pm 19.92 % 0.00-20.00 [facility] [id number] [address] [facility] [address] Monocyte Distribu tion Width December 27, 2024 9:05am December 27, 2024 10:10am 23.36 % Above high normal 0.00-20.00 For adults in ED, MDW > 20.0 may be associated with a higher risk of sepsis during the first 12 hrs of hospital admissionT he predictive value of MDW for identifyin g sepsis in patients with hematologi francis abnormalit ies has not been establishe d [facility] [id number] [address] [place] [address] Monocyte Distribu tion Width January 11, 2025 9:45am January 11, 2025 10:01am 24.38 % Above high normal 0.00-20.00 For adults in ED, MDW > 20.0 may be associated with a higher risk of sepsis during the first 12 hrs of hospital admission [facility] [id number] [address] [facility] [address] Neutroph ils (%) (Auto) October 26, 2024 4:47am October 26, 2024 5:30am 73.9 % . [facility] [id number] [address] [facility] [address] Neutroph ils (%) (Auto) December 27, 2024 9:05am December 27, 2024 10:10am 69.6 % . [facility] [id number] [address] [facility] [address] Neutroph ils (%) (Auto) January 17, 2025 9:00am January 17, 2025 9:44am 64.8 % . [facility] [id number] [address] [facility] [address] Lymphocy elaina (%) (Auto) October 26, 2024 4:47am October 26, 2024 5:30am 17.4 % . [facility] [id number] [address] [facility] [address] Lymphocy elaina (%) (Auto) December 27, 2024 9:05am December 27, 2024 10:10am 18.8 % . [facility] [id number] [address] [facility] [address] Lymphocy elaina (%) (Auto) January 17, 2025 9:00am January 17, 2025 9:44am 25.1 % . [facility] [id number] [address] [facility] [address] Monocyte s (%) (Auto) October 26, 2024 4:47am October 26, 2024 5:30am 7.0 % . [facility] [id number] [address] [facility] [address] Monocyte s (%) (Auto) December 27, 2024 9:05am December 27, 2024 10:10am 4.5 % . [facility] [id number] [address] [facility] [address] Monocyte s (%) (Auto) January 17, 2025 9:00am January 17, 2025 9:44am 8.1 % . [facility] [id number] [address] [facility] [address] Eosinoph ils (%) (Auto) October 26, 2024 4:47am October 26, 2024 5:30am 0.6 % . [facility] [id number] [address] [facility] [address] Eosinoph ils (%) (Auto) December 27, 2024 9:05am December 27, 2024 10:10am 6.1 % . [facility] [id number] [address] [facility] [address] Eosinoph ils (%) (Auto) January 17, 2025 9:00am January 17, 2025 9:44am 0.5 % . [facility] [id number] [address] [facility] [address] Basophil s (%) (Auto) October 26, 2024 4:47am October 26, 2024 5:30am 1.1 % . [facility] [id number] [address] [facility] [address] Basophil s (%) (Auto) December 27, 2024 9:05am December 27, 2024 10:10am 1.0 % . [facility] [id number] [address] [facility] [address] Basophil s (%) (Auto) January 17, 2025 9:00am January 17, 2025 9:44am 1.5 % . [facility] [id number] [address] [facility] [address] Nucleate d RBC Relative Count (auto) October 26, 2024 4:47am October 26, 2024 5:30am 0.1 /100{WBC} 0-0.5 [facility] [id number] [address] [facility] [address] Nucleate d RBC Relative Count (auto) December 27, 2024 9:05am December 27, 2024 10:10am 0.1 /100{WBC} 0-0.5 [facility] [id number] [address] [facility] [address] Nucleate d RBC Relative Count (auto) January 17, 2025 9:00am January 17, 2025 9:44am 0.2 /100{WBC} 0-0.5 [facility] [id number] [address] [facility] [address] Neutroph ils # (Auto) October 26, 2024 4:47am October 26, 2024 5:30am 8.5 10*3/uL Above high normal 1.8-7.7 [facility] [id number] [address] [facility] [address] Neutroph ils # (Auto) December 27, 2024 9:05am December 27, 2024 10:10am 10.2 10*3/uL Above high normal 1.8-7.7 [facility] [id number] [address] [facility] [address] Neutroph ils # (Auto) January 17, 2025 9:00am January 17, 2025 9:44am 11.4 10*3/uL Above high normal 1.8-7.7 [facility] [id number] [address] [facility] [address] Lymphocy elaina # (Auto) October 26, 2024 4:47am October 26, 2024 5:30am 2.0 10*3/uL 1.00-4.8 [facility] [id number] [address] [facility] [address] Lymphocy elaina # (Auto) December 27, 2024 9:05am December 27, 2024 10:10am 2.8 10*3/uL 1.00-4.8 [facility] [id number] [address] [facility] [address] Lymphocy elaina # (Auto) January 17, 2025 9:00am January 17, 2025 9:44am 4.4 10*3/uL 1.00-4.8 [facility] [id number] [address] [facility] [address] Monocyte s # (Auto) October 26, 2024 4:47am October 26, 2024 5:30am 0.8 10*3/uL 0.0-0.8 [facility] [id number] [address] [facility] [address] Monocyte s # (Auto) December 27, 2024 9:05am December 27, 2024 10:10am 0.7 10*3/uL 0.0-0.8 [facility] [id number] 1[address] [facility] [address] Monocyte s # (Auto) January 17, 2025 9:00am January 17, 2025 9:44am 1.4 10*3/uL Above high normal 0.0-0.8 [facility] [id number] [address] [place] [address] Eosinoph ils # (Auto) October 26, 2024 4:47am October 26, 2024 5:30am 0.1 10*3/uL 0.0-0.45 [facility] [id number] [address] [facility] [address] Eosinoph ils # (Auto) December 27, 2024 9:05am December 27, 2024 10:10am 0.9 10*3/uL Above high normal 0.0-0.45 [facility] [id number] [address] [facility] [address] Eosinoph ils # (Auto) January 17, 2025 9:00am January 17, 2025 9:44am 0.1 10*3/uL 0.0-0.45 [facility] [id number] [address] [facility] [address] Basophil s # (Auto) October 26, 2024 4:47am October 26, 2024 5:30am 0.1 10*3/uL 0.0-0.2 [facility] [id number] [address] [place] [address] Basophil s # (Auto) December 27, 2024 9:05am December 27, 2024 10:10am 0.2 10*3/uL 0.0-0.2 [facility] [id number] [address] [place] [address] Basophil s # (Auto) January 17, 2025 9:00am January 17, 2025 9:44am 0.3 10*3/uL Above high normal 0.0-0.2 [facility] [id number] [address] [facility] [address]679 Red Blood Cell Morpholo gy December 27, 2024 9:05am December 27, 2024 10:10am Normal Normal [facility] [id number] [address] [place] [address] Red Blood Cell Morpholo gy January 17, 2025 9:00am January 17, 2025 9:44am N/A [facility] [id number] [address] [place] [address] Hypochro masia January 17, 2025 9:00am January 17, 2025 9:44am Slight [facility] [id number] [address] [place] [address] Anisocyt osis January 17, 2025 9:00am January 17, 2025 9:44am Moderate [facility] [id number] [address] [facility] [address] Stomatoc ytes January 15, 2025 6:11am January 15, 2025 7:32am Slight [facility] [id number] [address] [facility] [address] Platelet Estimate December 27, 2024 9:05am December 27, 2024 10:10am Increased Normal [facility] [id number] [address] [facility] [address] Platelet Estimate January 17, 2025 9:00am January 17, 2025 9:44am Normal Normal [facility] [id number] [address] [place] [address] Platelet Morpholo gy Comment December 27, 2024 9:05am December 27, 2024 10:10am Normal Normal [facility] [id number] [address] [place] [address]168 Platelet Morpholo gy Comment January 17, 2025 9:00am January 17, 2025 9:44am Normal Normal [facility] [id number] [address] [place] [address]71 Prothrom bin Time October 23, 2024 5:53pm October 23, 2024 6:42pm 12.3 s 9.0-12.9 A hematocrit value greater than 55% may lead to inaccurate results in coagulatio n testing. Patients having hematocrit values >55% require a special collection tube for coagulatio n studies. Please contact the laboratory at for redraw instructio ns. [facility] [id number] [address] [facility] [address] Prothrom bin Time January 11, 2025 9:45am January 11, 2025 10:26am 12.6 s 9.0-12.9 A hematocrit value greater than 55% may lead to inaccurate results in coagulatio n testing. Patients having hematocrit values >55% require a special collection tube for coagulatio n studies. Please contact the laboratory at [phone] for redraw instructio ns. [facility] [id number] [address] [facility] [address] Prothrom b Time Internat ional Ratio October 23, 2024 5:53pm October 23, 2024 6:42pm 1.1 INR Therapeuti c Range A) Pre- and Peroperati ve OAT started two weeks before surgery. NOT HIP SURGERY: 1.5 - 2.5 HIP SURGERY: 2 - 3B) Primary and secondary prevention of venous THROMBOSIS : 2 - 3C) Active venous thrombosis , pulmonary embolisman d prevention of recurrent venous thrombosis : 2 - 3D) Prevention of arterial thromboemb olisminclu ding patients with mechanical heart valves: 3 - 4.5 [facility] [id number] [address] [facility] [address] Prothrom b Time Internat ional Ratio January 11, 2025 9:45am January 11, 2025 10:26am 1.1 INR Therapeuti c Range A) Pre- and Peroperati ve OAT started two weeks before surgery. NOT HIP SURGERY: 1.5 - 2.5 HIP SURGERY: 2 - 3B) Primary and secondary prevention of venous THROMBOSIS : 2 - 3C) Active venous thrombosis , pulmonary embolisman d prevention of recurrent venous thrombosis : 2 - 3D) Prevention of arterial thromboemb olisminclu ding patients with mechanical heart valves: 3 - 4.5 [facility] [id number] [address] [place] [address] Activate d Partial Thrombop last Time October 23, 2024 5:53pm October 23, 2024 6:42pm 29.8 s 25.1-36.5 A hematocrit value greater than 55% may lead to inaccurate results in coagulatio n testing. Patients having hematocrit values >55% require a special collection tube for coagulatio n studies. Please contact the laboratory at for redraw instructio ns. [facility] [id number] [address] [facility] [address] Urine Color October 23, 2024 8:05pm October 23, 2024 8:14pm Yellow Yellow [facility] [id number] [address] [facility] [address]672 Urine Color January 11, 2025 11:56am January 11, 2025 12:30pm Light-yell ow Yellow [facility] [id number] [address] [facility] [address] Urine Appearan ce October 23, 2024 8:05pm October 23, 2024 8:14pm Cloudy Abnormal (applies to non-numeric results) Clear [facility] [id number] [address] [facility] [address] Urine Appearan ce January 11, 2025 11:56am January 11, 2025 12:30pm Clear Clear [facility] [id number] [address] [facility] [address] Urine Specific Seffner October 23, 2024 8:05pm October 23, 2024 8:14pm 1.015 1.001-1.03 0 [facility] [id number] [address] [facility] [address]47 Urine Specific Seffner January 11, 2025 11:56am January 11, 2025 12:30pm 1.015 1.001-1.03 0 [facility] [id number] [address] [facility] [address] Urine pH October 23, 2024 8:05pm October 23, 2024 8:14pm 6.0 5.0-9.0 [facility] [id number] [address] [facility] [address] Urine pH January 11, 2025 11:56am January 11, 2025 12:30pm 6.5 5.0-9.0 [facility] [id number] [address] [facility] [address]645 Urine Leukocyt e Esterase October 23, 2024 8:05pm October 23, 2024 8:14pm 4+ Above high normal Negative [facility] [id number] [address] [place] [address]27 Urine Leukocyt e Esterase January 11, 2025 11:56am January 11, 2025 12:30pm Negative Negative [facility] [id number] [address] [facility] [address] Urine Nitrite October 23, 2024 8:05pm October 23, 2024 8:14pm Negative Negative [facility] [id number] [address] [facility] [address] Urine Nitrite January 11, 2025 11:56am January 11, 2025 12:30pm Negative Negative [facility] [id number] [address] [facility] [address] Urine Protein October 23, 2024 8:05pm October 23, 2024 8:14pm Trace mg/dL Above high normal Negative [facility] [id number] [address] [facility] [address]751 Urine Protein January 11, 2025 11:56am January 11, 2025 12:30pm Trace mg/dL Above high normal Negative [facility] [id number] [address] [facility] [address] Urine Glucose (UA) October 23, 2024 8:05pm October 23, 2024 8:14pm Normal mg/dL Normal [facility] [id number] [address] [facility] [address] Urine Glucose (UA) January 11, 2025 11:56am January 11, 2025 12:30pm Normal mg/dL Normal [facility] [id number] [address] [facility] [address] Urine Ketones October 23, 2024 8:05pm October 23, 2024 8:14pm Negative Negative [facility] [id number] [address] [facility] [address] Urine Ketones January 11, 2025 11:56am January 11, 2025 12:30pm Negative Negative [facility] [id number] [address] [facility] [address] Urine Urobilin ogen October 23, 2024 8:05pm October 23, 2024 8:14pm Normal mg/dL Normal [facility] [id number] [address] [facility] [address] Urine Urobilin ogen January 11, 2025 11:56am January 11, 2025 12:30pm Normal mg/dL Normal [facility] [id number] [address] [facility] [address] Urine Bilirubi n October 23, 2024 8:05pm October 23, 2024 8:14pm Negative Negative [facility] [id number] [address] [facility] [address] Urine Bilirubi n January 11, 2025 11:56am January 11, 2025 12:30pm Negative Negative [facility] [id number] [address] [facility] [address] Urine Occult Blood October 23, 2024 8:05pm October 23, 2024 8:14pm Negative Negative [facility] [id number] [address] [facility] [address] Urine Occult Blood January 11, 2025 11:56am January 11, 2025 12:30pm Negative Negative [facility] [id number] [address] [facility] [address] Urine RBC October 23, 2024 8:05pm October 23, 2024 8:18pm None seen [HPF] 0-4 [facility] [id number] [address] [facility] 5[address] Urine RBC January 11, 2025 11:56am January 11, 2025 12:40pm None seen [HPF] 0-4 [facility] [id number] [address] [facility] [address] Urine WBC October 23, 2024 8:05pm October 23, 2024 8:18pm Innumerabl e [HPF] Above high normal 0-4 [facility] [id number] [address] [facility] [address] Urine WBC January 11, 2025 11:56am January 11, 2025 12:40pm 1-2 [HPF] 0-4 [facility] [id number] [address] [facility] [address] Urine WBC Clumps October 23, 2024 8:05pm October 23, 2024 8:18pm Occasional [LPF] Above high normal None Seen [facility] [id number] [address] [facility] [address] Urine Squamous Epitheli al Cells October 23, 2024 8:05pm October 23, 2024 8:18pm 3-4 [HPF] Above high normal 0-2 [facility] [id number] [address] [facility] [address] Urine Squamous Epitheli al Cells January 11, 2025 11:56am January 11, 2025 12:40pm 1-2 [HPF] 0-2 [facility] [id number] [address] [facility] [address] Urine Bacteria October 23, 2024 8:05pm October 23, 2024 8:18pm 4+ [HPF] Above high normal None Seen [facility] [id number] [address] [facility] [address] Urine Bacteria January 11, 2025 11:56am January 11, 2025 12:40pm Rare [HPF] None Seen [facility] [id number] [address] [facility] [address] Urine Hyaline Casts October 23, 2024 8:05pm October 23, 2024 8:18pm None [LPF] 0-8 [facility] [id number] [address] [facility] [address] Urine Hyaline Casts January 11, 2025 11:56am January 11, 2025 12:40pm None [LPF] 0-8 [facility] [id number] [address] [facility] [address] Urine Mucus October 23, 2024 8:05pm October 23, 2024 8:18pm Rare [LPF] [facility] [id number] [address] [facility] [address]31 Urine Mucus January 11, 2025 11:56am January 11, 2025 12:40pm Rare [LPF] [facility] [id number] [address] [facility] [address] Glucose Level October 26, 2024 4:47am October 26, 2024 5:48am 107 mg/dL Above high normal 70-100 ADA recommende d reference rangeRando m Glucose Reference Range is dependent on time and content of last meal. Glucose of more than 200 mg/dL in a nonstresse d, ambulatory subject supports the diagnosis of Diabetes Mellitus. [facility] [id number] [address] [facility] [address] Glucose Level December 29, 2024 7:04am December 29, 2024 8:25am 90 mg/dL 70-100 ADA recommende d reference rangeRando m Glucose Reference Range is dependent on time and content of last meal. Glucose of more than 200 mg/dL in a nonstresse d, ambulatory subject supports the diagnosis of Diabetes Mellitus. [facility] [id number] [address] [facility] [address]26[address] Glucose Level January 17, 2025 7:46am January 17, 2025 8:19am 83 mg/dL 70-100 ADA recommende d reference rangeRando m Glucose Reference Range is dependent on time and content of last meal. Glucose of more than 200 mg/dL in a nonstresse d, ambulatory subject supports the diagnosis of Diabetes Mellitus. [facility] [id number] [address] [facility] [address] Blood Urea Nitrogen October 26, 2024 4:47am October 26, 2024 5:48am 12 mg/dL 7-25 [facility] [id number] [address] [facility] 85183 Blood Urea Nitrogen December 29, 2024 7:04am December 29, 2024 8:25am 10 mg/dL 11-11 [facility] [id number] [address] [place] 9821870 Blood Urea Nitrogen January 17, 2025 7:46am January 17, 2025 8:19am 13 mg/dL 11-11 [facility] [id number] [address] [facility] [address]441 Creatini ne October 26, 2024 4:47am October 26, 2024 5:48am 0.81 mg/dL 0.60-1.20 [facility] [id number] [address] [facility] 9[address] Creatini ne December 29, 2024 7:04am December 29, 2024 8:25am 0.94 mg/dL 0.60-1.20 [facility] [id number] [address] [facility] 5[address] Creatini ne January 17, 2025 7:46am January 17, 2025 8:19am 0.82 mg/dL 0.60-1.20 [facility] [id number] [address] [place] [address]44 Estimate d GFR (CKD-EPI ) October 26, 2024 4:47am October 26, 2024 5:48am > 60.0 mL/Min [facility] [id number] [address] [place] [address]221 Estimate d GFR (CKD-EPI ) December 29, 2024 7:04am December 29, 2024 8:25am > 60.0 mL/Min [facility] [id number] [address] [place], [place] [address] Estimate d GFR (CKD-EPI ) January 17, 2025 7:46am January 17, 2025 8:19am > 60.0 mL/Min [facility] [id number] [address] [place], [place] [address] Sodium Level October 26, 2024 4:47am October 26, 2024 5:48am 141 mmol/L 136-145 [facility] [id number] [address] [place], [place] [address] Sodium Level December 29, 2024 7:04am December 29, 2024 8:25am 141 mmol/L 136-145 [facility] [id number] [address] [facility] [address] Sodium Level January 17, 2025 7:46am January 17, 2025 8:19am 142 mmol/L 136-145 [facility] [id number] 1[address] [facility] 12210 Potassiu m Level October 26, 2024 4:47am October 26, 2024 5:48am 4.3 mmol/L 3.5-5.1 [facility] [id number] [address] [place] [address]187 Potassiu m Level December 29, 2024 7:04am December 29, 2024 8:25am 3.6 mmol/L 3.5-5.1 [facility] [id number] [address] [place] [address]241 Potassiu m Level January 17, 2025 7:46am January 17, 2025 8:19am 4.0 mmol/L 3.5-5.1 [facility] [id number] [address] [place] [address]39 Chloride Level October 26, 2024 4:47am October 26, 2024 5:48am 99 mmol/L 98-107 [facility] [id number] [address] [place] [address] 11573 Chloride Level December 29, 2024 7:04am December 29, 2024 8:25am 102 mmol/L 98-107 [facility] [id number] 1[address] [facility] [address] Chloride Level January 17, 2025 7:46am January 17, 2025 8:19am 102 mmol/L 98-107 [facility] [id number] [address] [place] [address] 23374 Carbon Dioxide Level October 26, 2024 4:47am October 26, 2024 5:48am 37.0 mmol/L Above high normal 21.0-31.0 [facility] [id number] [address] [place] [address] 46050 Carbon Dioxide Level December 29, 2024 7:04am December 29, 2024 8:25am 32.4 mmol/L Above high normal 21.0-31.0 [facility] [id number] 1[address] [facility] [address] Carbon Dioxide Level January 17, 2025 7:46am January 17, 2025 8:19am 35.9 mmol/L Above high normal 21.0-31.0 [facility] [id number] 1[address] [facility] [address] Anion Gap October 26, 2024 4:47am October 26, 2024 5:48am 9.3 mEq/L 6.0-15.0 [facility] [id number] 1[address] [facility] 55783 Anion Gap December 29, 2024 7:04am December 29, 2024 8:25am 10.2 mEq/L 6.0-15.0 [facility] [id number] 1[address] [facility] 40410 Anion [place] January 17, 2025 7:46am January 17, 2025 8:19am 8.1 mEq/L 6.0-15.0 [facility] [id number] [address] [facility] 7[address] Calcium Level October 26, 2024 4:47am October 26, 2024 5:48am 8.8 mg/dL 8.6-10.3 [facility] [id number] 1[address] [facility] [address] Calcium Level December 29, 2024 7:04am December 29, 2024 8:25am 7.0 mg/dL Below low normal 8.6-10.3 [facility] [id number] 1[address] [facility] 0[address] Calcium Level January 17, 2025 7:46am January 17, 2025 8:19am 8.6 mg/dL 8.6-10.3 [facility] [id number] 1[address] [facility] 40896 Phosphor us Level October 24, 2024 5:58am October 24, 2024 7:23am 3.2 mg/dL 2.5-4.5 [facility] [id number] [address] [place] [address]690 Magnesiu m Level October 26, 2024 4:47am October 26, 2024 5:48am 1.6 mg/dL Below low normal 1.9-2.7 [facility] [id number] [address] [facility] [address] Magnesiu m Level January 16, 2025 7:02am January 16, 2025 7:57am 1.8 mg/dL Below low normal 1.9-2.7 [facility] [id number] 1[address] [facility] 60067 Total Protein October 26, 2024 4:47am October 26, 2024 5:48am 5.3 g/dL Below low normal 6.4-8.9 [facility] [id number] 1[address] [facility] 570[address] Total Protein December 27, 2024 9:05am December 27, 2024 9:54am 5.4 g/dL Below low normal 6.4-8.9 [facility] [id number] 1[address] [facility] 89564 Total Protein January 16, 2025 7:02am January 16, 2025 7:57am 5.7 g/dL Below low normal 6.4-8.9 [facility] [id number] 1[address] [facility] 51152 Albumin October 26, 2024 4:47am October 26, 2024 5:48am 2.9 g/dL Below low normal 3.5-5.7 [facility] [id number] 1[address] [facility] 75658 Albumin December 27, 2024 9:05am December 27, 2024 9:54am 2.3 g/dL Below low normal 3.5-5.7 [facility] [id number] 1[address] [facility] 31151 Albumin January 16, 2025 7:02am January 16, 2025 7:57am 2.6 g/dL Below low normal 3.5-5.7 [facility] [id number] 1[address] [facility] 80403 Globulin October 26, 2024 4:47am October 26, 2024 5:48am 2.4 g/dL [facility] [id number] 1[address] [facility] 52006 Globulin December 27, 2024 9:05am December 27, 2024 9:54am 3.1 g/dL [facility] [id number] 1[address] [facility] 57314 Globulin January 16, 2025 7:02am January 16, 2025 7:57am 3.1 g/dL [facility] [id number] 1[address] [facility] 68332 Albumin/ Globulin Ratio October 26, 2024 4:47am October 26, 2024 5:48am 1.2 [facility] [id number] 1[address] [facility] 27638 Albumin/ Globulin Ratio December 27, 2024 9:05am December 27, 2024 9:54am 0.7 [facility] [id number] 1[address] [facility] 41771 Albumin/ Globulin Ratio January 16, 2025 7:02am January 16, 2025 7:57am 0.8 [facility] [id number] 1[address] [facility] 93631 Total Bilirubi n October 26, 2024 4:47am October 26, 2024 5:48am 0.2 mg/dL Below low normal 0.3-1.0 [facility] [id number] 1[address] [facility] 53896 Total Bilirubi n December 27, 2024 9:05am December 27, 2024 9:54am 0.3 mg/dL 0.3-1.0 [facility] [id number] 1[address] [facility] 10411 Total Bilirubi n January 16, 2025 7:02am January 16, 2025 7:57am 0.3 mg/dL 0.3-1.0 [facility] [id number] 1[address] [facility] 35229 Aspartat e Amino Transf (AST/SGO T) October 26, 2024 4:47am October 26, 2024 5:48am 7 U/L Below low normal 13-39 [facility] [id number] 1[address] [facility] 16064 Aspartat e Amino Transf (AST/SGO T) December 27, 2024 9:05am December 27, 2024 9:54am 7 U/L Below low normal [facility] [id number] [address] [place] [address]645 Aspartat e Amino Transf (AST/SGO T) January 16, 2025 7:02am January 16, 2025 7:57am 17 U/L 39 [facility] [id number] [address] [place] [address] 32195 Alanine Aminotra nsferase (ALT/SGP T) October 26, 2024 4:47am October 26, 2024 5:48am 7 U/L [facility] [id number] [address] [place] [address] 51849 Alanine Aminotra nsferase (ALT/SGP T) December 27, 2024 9:05am December 27, 2024 9:54am 5 U/L Below low normal [facility] [id number] [address] [place] [address] 29217 Alanine Aminotra nsferase (ALT/SGP T) January 16, 2025 7:02am January 16, 2025 7:57am 11 U/L [facility] [id number] [address] [place] [address] 94012 Alkaline Phosphat ase October 26, 2024 4:47am October 26, 2024 5:48am 89 U/L [facility] [id number] [address] [place] [address] 61888 Alkaline Phosphat ase December 27, 2024 9:05am December 27, 2024 9:54am 137 U/L Above high normal [facility] [id number] [address] [place] [address] 85778 Alkaline Phosphat ase January 16, 2025 7:02am January 16, 2025 7:57am 88 U/L [facility] [id number] [address] [place], [place] [address] Lactic Acid Level October 23, 2024 6:03pm October 23, 2024 6:31pm 0.9 mmol/L 0.5-1.9 Lactic Acid reference range has been updated to 0.5 1.9 mmol/L and the critical range of 2.0 or greater. [facility] [id number] [address] [place] [address] 00099 Lactic Acid Level December 27, 2024 12:50pm December 27, 2024 1:19pm 1.1 mmol/L 0.5-1.9 Lactic Acid reference range has been updated to 0.5 1.9 mmol/L and the critical range of 2.0 or greater. [facility] [id number] [address] [place] [address] 34169 Total Creatine Kinase October 23, 2024 5:53pm October 23, 2024 6:26pm 28 U/L Below low normal 30-223 [facility] [id number] [address] [place] [address] 04023 Total Creatine Kinase December 27, 2024 9:05am December 27, 2024 9:54am 25 U/L Below low normal [facility] [id number] [address] [place] [address] 57243 Total Creatine Kinase January 11, 2025 9:45am January 11, 2025 10:22am 50 U/L 30223 [facility] [id number] [address] [place] [address] 54702 Troponin I High Sensitiv ity October 23, 2024 5:53pm October 23, 2024 6:32pm 6 ng/L 0-15 The Troponin units of report have been changed to meet the Chest Pain Accreditat ion requiremen t, element EC5.M1l2. Troponin units are changed from pg/ml to ng/L. Also, the decimal is removed and results are in whole numbers. [facility] [id number] 1[address] [facility] 15672 Troponin I High Sensitiv ity December 27, 2024 9:05am December 27, 2024 10:00am 8 ng/L 0-15 The Troponin units of report have been changed to meet the Chest Pain Accreditat ion requiremen t, element EC5.M1l2. Troponin units are changed from pg/ml to ng/L. Also, the decimal is removed and results are in whole numbers. [facility] [id number] 1[address] [facility] 35958 Troponin I High Sensitiv ity January 11, 2025 9:45am January 11, 2025 10:28am 8 ng/L 0-15 The Troponin units of report have been changed to meet the Chest Pain Accreditat ion requiremen t, element EC5.M1l2. Troponin units are changed from pg/ml to ng/L. Also, the decimal is removed and results are in whole numbers. [facility] [id number] [address] [place], [place] [address] B-Type Natriure tic Peptide October 23, 2024 5:53pm October 23, 2024 6:35pm 29.0 pg/mL [facility] [id number] [address] [place], [place] [address] B-Type Natriure tic Peptide December 27, 2024 9:05am December 27, 2024 9:58am 181.0 pg/mL Above high normal [facility] [id number] [address] [place], [place] [address] B-Type Natriure tic Peptide January 11, 2025 9:45am January 11, 2025 10:27am 125.0 pg/mL Above high normal [facility] [id number] [address] [place], [place] [address] Pharmacy Creatini ne Clearanc e (Chem October 26, 2024 4:47am October 26, 2024 5:48am 93.17 [facility] [id number] [address] [place], [place] [address] Pharmacy Creatini ne Clear[facility] e (Chem December 29, 2024 7:04am December 29, 2024 8:25am 79.63 [facility] [id number] [address] [place], [place] [address] Pharmacy Creatini ne Clearanc e (Chem January 17, 2025 7:46am January 17, 2025 8:19am 89.73 [facility] [id number] [address] [place], [place] [address] Procalci tonin January 11, 2025 1:34pm January 16, 2025 3:08pm 0.08 ng/mL 0.00-0.08 A procalcito rafael (PCT) level above 2.0 ng/mL on the firstday of ICU admission is associated with a high risk forprogres toma to severe sepsis and/or septic shock.A PCT level below 0.5 ng/mL on the first day of ICUadmissi on is associated with a low risk for progressio nto severe sepsis and/or septic shock.Note : Concentrat ions <0.5 ng/mL do not exclude aninfectio n, on account of localized infections (withoutsy stemic signs) which can be associated with such lowconcent rations, or a systemic infection in its initialsta ges (<6 hours).Fur thermore, increased procalcito rafael can occur withoutinf ection. PCT concentrat ions between 0.5 and 2.0 ng/mLshoul d be interprete d taking into account the patient'sh istory. It is recommende d to retest PCT within 6-24 hoursif any concentrat ions <2 ng/mL are obtained.P erformed at: - [facility] [id number] Director: Teresa Mora MD, Phone: [phone] [facility] 00 Coronavi mckenna 2019 Clinical Comment 2 October 24, 2024 4:11pm October 24, 2024 5:39pm Not detected Not Detecte This is a duplicate RP2.1 COVID (PCR) result to be used for statistica l tracking purpose only. [facility] [id number] [address] [place], [place] [address] Arterial Blood pH October 23, 2024 5:47pm October 23, 2024 5:50pm 7.39 7.35-7.45 Point of Care testing Arterial Blood pH January 16, 2025 9:25pm January 16, 2025 9:30pm 7.40 7.35-7.45 Point of Care testing Arterial Blood Partial Pressure CO2 October 23, 2024 5:47pm October 23, 2024 5:50pm 69.3 mm[Hg] Above upper panic limits 35.0-45.0 Point of Care testing Arterial Blood Partial Pressure CO2 January 16, 2025 9:25pm January 16, 2025 9:30pm 60.6 mm[Hg] Above upper panic limits 35.0-45.0 Point of Care testing Arterial Blood Partial Pressure O2 October 23, 2024 5:47pm October 23, 2024 5:50pm 65.8 mm[Hg] Below low normal 80.0-100.0 Point of Care testing Arterial Blood Partial Pressure O2 January 16, 2025 9:25pm January 16, 2025 9:30pm 64.2 mm[Hg] Below low normal 80.0-100.0 Point of Care testing Arterial Blood HCO3 October 23, 2024 5:47pm October 23, 2024 5:50pm 41.0 mmol/L Above high normal 23.0-29.0 Point of Care testing Arterial Blood HCO3 January 16, 2025 9:25pm January 16, 2025 9:30pm 36.4 mmol/L Above high normal 23.0-29.0 Point of Care testing Arterial Blood Base Excess October 23, 2024 5:47pm October 23, 2024 5:50pm 12.9 mmol/L Above high normal -3.0-3.0 Point of Care testing Arterial Blood Base Excess January 16, 2025 9:25pm January 16, 2025 9:30pm 9.6 mmol/L Above high normal -3.0-3.0 Point of Care testing Arterial Blood Oxygen Saturati on October 23, 2024 5:47pm October 23, 2024 5:50pm 92.0 % Below low normal 95.0-100.0 Point of Care testing Arterial Blood Oxygen Saturati on January 16, 2025 9:25pm January 16, 2025 9:30pm 92.5 % Below low normal 95.0-100.0 Point of Care testing Arterial Blood Oxygen Content October 23, 2024 5:47pm October 23, 2024 5:50pm 7.7 mmol/L 6.6-9.7 Point of Care testing Arterial Blood Oxygen Content January 16, 2025 9:25pm January 16, 2025 9:30pm 6.5 mmol/L Below low normal 6.6-9.7 Point of Care testing Arterial Blood Total CO2 October 23, 2024 5:47pm October 23, 2024 5:50pm 43.1 mmol/L Above high normal 23.0-27.0 Point of Care testing Arterial Blood Total CO2 January 16, 2025 9:25pm January 16, 2025 9:30pm 38.2 mmol/L Above high normal 23.0-27.0 Point of Care testing FiO2 October 23, 2024 5:47pm October 23, 2024 5:50pm 35 % Point of Care testing FiO2 January 16, 2025 9:25pm January 16, 2025 9:30pm 44 % Point of Care testing Blood Gas Liter Flow October 23, 2024 5:47pm October 23, 2024 5:50pm 4 L/min Point of Care testing Blood Gas Sample Site October 23, 2024 5:47pm October 23, 2024 5:50pm Left brachial Point of Care testing Blood Gas Sample Site January 16, 2025 9:25pm January 16, 2025 9:30pm Right brachial Point of Care testing Blood Gas Critical Value October 23, 2024 5:47pm October 23, 2024 5:50pm See comment Critical Value called on: 10/23/2024 at 17:49 Point of Care testing Blood Gas Critical Value January 16, 2025 9:25pm January 16, 2025 9:30pm See comment Critical Value called on: 01/16/2025 at 21:28 Point of Care testing Bedside Glucose October 26, 2024 11:21am October 26, 2024 11:28am 108 mg/dL Random Glucose Reference Range is dependent on time and content of last meal. Glucose of more than 200 mg/dL in a nonstresse d, ambulatory subject supports the diagnosis of Diabetes Mellitus. Point of Care testing Bedside Glucose Comment October 25, 2024 9:16pm October 25, 2024 9:27pm Glu2: cleaned meter Point of Care testing Clostrid ium difficil e Toxin B Gene December 27, 2024 4:52pm December 27, 2024 10:52pm Negative Negative Testing performed by RT-PCR [facility] [id number] 1[address] [facility] [address] Microbiology Results Procedure Source Result Collection Date/Time Result Date/Time Result Comment Performing Site Blood Culture Blood, Right Hand NO GROWTH 5 DAYS October 23, 2024 5:53pm October 28, 2024 6:02pm [facility] [id number] [address] [facility] [address]34 Blood Culture Blood, Left Antecubital NO GROWTH 5 DAYS October 23, 2024 6:03pm October 28, 2024 6:14pm [facility] [id number] [address] [facility] 64759 Blood Culture Blood, Left Forearm NO GROWTH 5 DAYS December 27, 2024 12:50pm January 01, 2025 12:54pm [facility] [id number] [address] [place] [address] 20762 Blood Culture Blood, Left Antecubital NO GROWTH 5 DAYS December 27, 2024 1:03pm January 01, 2025 1:12pm [facility] [id number] [address] [place] [address] 53709 Urine Culture Urine, Straight Cath Klebsiella pneumoniae October 23, 2024 8:05pm October 25, 2024 10:12am [facility] [id number] [address] [place] [address] 78207 Nasal Screen MRSA/MSSA Nasal October 24, 2024 4:11pm October 24, 2024 5:45pm [facility] [id number] [address] [place] [address] 22398 Aerobic Culture Sputum, Expectorated Streptococcus pneumoniae January 11, 2025 4:25pm January 15, 2025 10:06am [facility] [id number] [address] [place] [address] 90059 Gram Stain Sputum, Expectorated January 11, 2025 4:25pm January 11, 2025 6:48pm [facility] [id number] [address] [place] [address] 08451 Respiratory Panel (PCR) Nasopharyngeal October 24, 2024 4:11pm October 24, 2024 5:38pm [facility] [id number] [address] [place], [place] [address] Diagnostic Imaging Reports Author Antonio Jain [facility] Authored October 23, 2024 5:05p m Report Dictated Date/Time Dictated By Status Radiology Report October 23, 2024 5:05pm Antonio Jain , DO completed [facility] Main [address] [address] XRay Report Signed Patient: Carmen Tucker MR#: [id number] : 1960 Acct:[id number] Age/Sex: 64 / F ADM Date: 5 Loc: ER Room: Type: PRE ER Attending Dr: Copies to: Harry Carlos PA-C~ Ordering Provider: Harry Carlos PA-C Date of Service: 10/23/24 XR/XR tibia fibula RT 2V*: Fall ([id number]) XR/XR chest 1V portable: Fall Plain film chest Single view HISTORY: Fell. Wound involving the right lower leg. COMPARISON: 09/21/2024 FINDINGS: SUPPORT DEVICES: None POSTSURGICAL CHANGES: None HEART: Within normal limits PULMONARY SHERRIE: Within normal limits MEDIASTINUM: Unremarkable LUNGS AND PLEURA: Mild left basilar pleural-parenchymal changes. Similar finding. No new consolidation. BONY STRUCTURES: Intact ADDITIONAL FINDINGS None XR/XR chest 1V portable IMPRESSION: Similar mild left basilar pleural-parenchymal changes. No new findings. 2 views of the right tibia and fibula Adequate alignment without acute displaced fracture. Lateral soft tissue laceration with adjacent edema. No radiodense foreign body. IMPRESSION: Lateral laceration with edema. No acute displaced fracture. Impression dictated by: Antonio Jain M.D. 10/23/2024 5:06 PM Dictation Location: [place] Transcribed By: [facility] 10/23/241705 Dictated By: Antonio Jain DO 10/23/241704 Signed By: <Electronically signed by Antonio Jain DO in OV> 10/23/241705 Author Antonio Jain [facility] Authored October 23, 2024 5:07p m Report Dictated Date/Time Dictated By Status Radiology Report October 23, 2024 5:07pm Antonio Jain DO completed [facility] Main [place] [address] [place] [address] CT Scan Report Signed Patient: Carmen Tucker MR#: [id number] : 1960 Acct:[id number] Age/Sex: 64 / F ADM Date: 5 Loc: ER Room: Type: PRE ER Attending Dr: Copies to: Harry Carlos PA-C~ Ordering Provider: Harry Carlos PA-C Date of Service: 10/23/24 CT/CT head/brain wo con: fall ([id number]) CT/CT cervical spine wo con: fall Unenhanced head CT TECHNIQUE: Contiguous axial imaging of the head. The CT exam was performed using one or more the following dose reduction techniques: Automated exposure control, adjustment of the MA and/or Kv according to patient size, or use of the iterative reconstruction technique. COMPARISON: 07/31/2024 HISTORY: Fell. Neck pain VENTRICLES: Within normal limits ATROPHY: Similar atrophy BRAIN PARENCHYMA: Decreased density of the white matter is most consistent with chronic small vessel disease. HEMORRHAGE: None HERNIATION: No mass effect or herniation INFARCTION: No recent vascular distribution infarction is seen. EXTRA-AXIAL FLUID COLLECTIONS None MIDBRAIN: Unremarkable CHIO: Unremarkable MEDULLA: Unremarkable SINUSES: Unremarkable ORBITS: Grossly unremarkable MASTOIDS: Unremarkable BONY STRUCTURES Intact ADDITIONAL FINDINGS: CT/CT head/brain wo con IMPRESSION: No acute findings. CT Cervical Spine withoutcontrast TECHNIQUE: Axial imaging with 2-D and 3-D reconstruction. The CT exam was performed using one or more the following dose reduction techniques: Automated e xposure control, adjustment of the MA and/or Kv according to patient size, or use of the iterative reconstruction technique. COMPARISON: None POST SURGERY CHANGES: None BONY ALIGNMENT: Reversal BONY SPINAL CANAL: Patent central bony canal FRACTURE: None BONY LESIONS: None SOFT TISSUES: Unremarkable DEGENERATIVE CHANGES: C5-6 and C6-7 and C7-T1 extensive spondylosis. Mild bi lateral facet degeneration. LUNG APICES: Unremarkable ADDITIONAL FINDINGS: IMPRESSION: No acute displaced fracture. Degenerative change. Reversal cervical lordosis. Impression dictated by: Antonio Jain M.D. 10/23/2024 5:11 PM Dictation Location: [place] [address] Transcribed By: [facility] 10/23/24 1711 Dictated By: Antonio Jain DO 10/23/24 1707 Signed By: <Electronically signed by Antonio Jain DO in OV> 10/23/24 1711 Author Pramod Fontaine [facility] Authored December 27, 2024 9:50am Report Dictated Date/Time Dictated By Status Radiology Report December 27, 2024 9:50am Josh Fontaine Jr DO completed [facility] Main [place] [address] [place] [address] XRay Report Signed Patient: Carmen Tucker MR#: [id number] : 1960 Acct:[id number] Age/Sex: 64 / F ADM Date: 5 Loc: ER Room: Type: [facility] ER Attending Dr: Copies to: Sundar Silva DO~ Ordering Provider: Sundar Silva DO Date of Service: 12/27/24 XR/XR chest 2V*: Shortness of Breath/Dyspnea Chest 2 views CLINICAL HISTORY: Shortness of breath chronic cough started yesterday. COMPARISON: Chest 10/23/2024 FINDINGS: Cardiomediastinal structures appear unchanged. Left lower lobe airspace disease and small left pleural effusion. No pneumothorax or free air. XR/XR chest 2V* IMPRESSION: LEFT LOWER LOBE AIRSPACE DISEASE AND SMALL LEFT PLEURAL EFFUSION. FINDINGS HAVE PROGRESSED SINCE THE PRIOR STUDY. Impression dictated by: Pramod Fontaine Jr., D.O. 12/27/2024 9:51 AM Dictation Location: [facility] Transcribed By: [facility] 12/27/24950 Dictated By: Pramod Fontaine Jr, DO 12/27/2450 Signed By: <Electronically signed by Pramod Fontaine Jr, DO in OV> 12/27/24 0951 Author Pramod Fontaine [facility] Authored January 11, 2025 10:21am Report Dictated Date/Time Dictated By Status Radiology Report January 11, 2025 10:21am Pramod Fontaine Jr DO completed [facility] [place] [address] XRay Report Signed Patient: Carmen Tucker MR#: [id number] : 1960 Acct:[id number] Age/Sex: 64 / F ADM Date: 5 Loc: ER Room: Type: [facility] ER Attending Dr: Copies to: Sundar Silva DO~ Ordering Provider: Sundar Silva DO Date of Service: 01/11/25 XR/XR chest 1V portable: Shortness of Breath/Dyspnea SINGLE VIEW CHEST CLINICAL HISTORY: Shortness of breath cough. COMPARISON: Chest 12/27/2024 FINDINGS: Cardiomegaly with vascular congestion. Trace left pleural effusion and left lower lobe airspace disease. No consolidation pneumothorax or free air. XR/XR chest 1V portable IMPRESSION: NO SIGNIFICANT CHANGE IN CHEST FINDINGS. Impression dictated by: Pramod Fontaine Jr. D.OChloé 01/11/2025 10:22 AM Dictation Location: [facility] Transcribed By: [facility] 01/11/25 1022 Dictated By: Pramod Fontaine Jr, DO 01/11/25 1021 Signed By: <Electronically signed by Pramod Fontaine Jr, DO in OV> 01/11/25 1022 Author Jean Pierre Govea [facility] Authored January 14, 2025 4:49pm Report Dictated Date/Time Dictated By Status Radiology Report January 14, 2025 4:49pm Jean Pierre Govea II MD completed [facility] [place] [address] CT Scan Report Signed Patient: Carmen Tucker MR#: [id number] : 1960 Acct:[id number] Age/Sex: 64 / F ADM Date: 5 Loc: Room: [address] [place] [address] Type: ADM IN Attending Dr: Michael Hatfield MD Copies to: Michael Hatfield MD~ Ordering Provider: Michael Hatfield MD Date of Service: 01/14/25 CT/CT chest wo con: COPD vs pneumonia CT chest wo con 01/14/2025 11:16 AM SIGN AND SYMPTOMS: COPD vs pneumonia, chronic cough TECHNIQUE: Multidetector CT axial slices of the chest were obtained without IV contrast. Multiplanar reformats were performed and viewed on a separate workstation and reviewed to further define anatomy and possible pathology. CT was performed with one or more of the following dose reduction techniques: Automated exposure control, adjustment of the mA and/or kV according to patient size, or use of iterative reconstruction technique. COMPARISON: 02/29/2020. FINDINGS: Lower neck: Thyroid gland within normal limits, no supraclavicle adenopathy. Vessels: Atherosclerotic changes are noted in the thoracic aorta, origins of the great vessels, and coronary arteries. Mediastinum and Sherrie: Nonspecific mediastinal lymph nodes are noted, increasing in prominence when compared to the prior exam measuring up to 1 cm in short axis. Heart: Normal size. No pericardial effusion. Airways: Within normal limits Lungs: There is a 9 mm area of nodular consolidation in the left lower lobe posteriorly. Additional areas of airspace opacity are noted in the lower lobes bilaterally and at the base of the left upper lobe. There are emphysematous changes. Pleura: Small bilateral pleural effusions are visualized. Chest Wall: Within normal limits. Upper Abdomen: There is intrahepatic pneumobilia presumably relating to prior cholecystectomy. Bones: Within normal limits. CT/CT chest wo con IMPRESSION: Bilateral airspace opacities are noted, greatest in the left lung base. This ma y be infectious in nature. There is an 9 mm noncalcified nodule in the left lower lobe posteriorly which is new. Short-term interval follow-up with chest CT is recommended after symptom resolution as malignancy is not excluded. Small bilateral pleural effusions are present. Impression dictated by: Jean Pierre Govea M.D. 01/14/2025 5:16 PM Dictation Location: [place] [address] Transcribed By: [facility] 01/14/251715 Dictated By: Jean Pierre Govea II, MD 01/14/25 1649 Signed By: <Electronically signed by Jean Pierre Govea II, MD in OV> 01/14/25 171 Vital Signs Vital Reading Result Reference Range Collection Date/Time Height 68 [in_i] October 24, 2024 3:04pm Weight 112.80 kg October 26, 2024 6:00am Body Temperature 98.4 [degF] 97.6-99.0 October 26, 025 8:00am Heart Rate 67 /min 60-100 October 26, 2024 8:34am Respiratory rate 20 /min -October 26, 025 8:34am Oxygen saturation by Pulse oximetry 97 % 95-100 October 26, 2024 8:00a m BP Systolic 114 mm[Hg] 100-140 October 26, 2024 8:00am BP Diastolic 65 mm[Hg] 60-100 October 26, 2024 8:00am Inhaled oxygen concentration 35 % October 24, 2024 4:00am Inhaled oxygen flow rate 4 L/min Oct 8:00am Height 68 [in_i] November 24 3:00pm Weight 104.32 kg November 24 3:00pm Body Temperature 98.1 [degF] 97.6-99.0 November 24, 2024 2:38pm Heart Rate 105 /min 60-100 November 24 2:38pm Respiratory rate 24 /min 12-24 November 24, 2024 2:38pm BP Systolic 108 mm[Hg] 100-140 November 24 2:38pm BP Diastolic 84 mm[Hg] 60-100 November 24 2:38pm BMI (Body Mass Index) 34.9 kg/m2 November 24, 2024 3:00pm Height 68 [in_i] December 29, 2024 1:50pm Weight 110.00 kg December 29, 2024 5:41am Body Temperature 97.9 [degF] 97.6-99.0 December 192024 8:00am Heart Rate 98 /min 60-100 December 29, 2024 1:29pm Respiratory rate 18 /min -December 192024 1:29pm Oxygen saturation by Pulse oximetry 98 % 95-100 December 29, 2024 8:00am BP Systolic 109 mm[Hg] 100-140 December 29, 2024 8:00am BP Diastolic 74 mm[Hg] 60-100 December 29, 2024 8:00am Inhaled oxygen flow rate 3 L/min Dec 4:00pm Height 68 [in_i] January 13, 2025 3:38pm Weight 106.50 kg January 17, 2025 6:22am Body Temperature 97.9 [degF] 97.6-99.0 December 212024 6:47pm Heart Rate 92 /min 60-100 January 17, 2025 6:47pm Respiratory rate 20 /min -December 212024 6:47pm Oxygen saturation by Pulse oximetry 95 % 95-100 January 17, 2025 12:00pm BP Systolic 108 mm[Hg] 100-140 January 17, 2025 6:47pm BP Diastolic 63 mm[Hg] 60-100 January 17, 2025 6:47pm Inhaled oxygen flow rate 6 L/min Dec 6:47pm Advance Directives Advance Directive Response Recorded Date/ Time Advance Directives No July 30, 2 018 10:40pm Insurance Providers Guarantor uLcas Martinez Address [address] [place] [address] [place] [phone] Contact Info. Home Phone: Payer Policy Id Subscriber's Name Subscriber Id Effective Date Expiration Date Medicaid [id number] Carmen Lucas Tucker [id number] Medicare [id number] Lucas Martinez [id number] Medicare Nonpatient [id number] Lucas Martinez [id number] Encounters Encounter Location(s) Arrival/Admit Date Discharge/Depart Date Provider(s) Discharged Inpatient -4 [facility] October 23, 2024 9:15pm October 26, 2024 3:57pm Lucas Moyer MD Discharged Recurring -W[facility] November 24, 2024 2:29pm November 24, 2024 11:59pm Lucas Salgado CAMP MANAGER Discharged Inpatient -3 [facility] December 27, 2024 11:12am December 29, 2024 6:37pm Tramaine Ziegler MD Discharged Inpatient -3 [facility] January 11, 2025 11:06am January 17, 2025 6:47pm Lucas Moyer MD Recent Diagnosis Onset Date Admit Date Acute hypercapnic respiratory failure Unknown October 23, 2024 9:15pm Acute hypokalemia Unknown October 23, 2024 9:15pm Acute kidney injury Unknown October 23 9:15pm Chronic respiratory failure with hypoxia and hypercapnia Unknown October 23, 2024 9:15pm Leukocytosis Unknown October 23, 2024 9 :15pm Nicotine addiction Unknown October 23 9:15pm Pneumonia Unknown October 23, 2024 9 :15pm Pulmonary hypertension Unknown October 23, 2024 9:15pm UTI (urinary tract infection) Unknown Ju ly 2024 9:15pm Wound of right lower extremity Unknown J jeannie 2024 9:15pm Leg ulcer, left Unknown November 24, 2024 2:29pm Nonadherence to medical treatment Unknown November 24, 2024 2:29pm PAD (peripheral artery disease) Unknown November 24, 2024 2:29pm PVD (peripheral vascular disease) Unknown November 24, 2024 2:29pm Ulcer of left heel Unknown November 24, 025 2:29pm Ulcer of right heel Unknown November 24, 2024 2:29pm Hyperkeratosis Unknown November 24, 2024 2:29pm Lymphedema of both lower extremities Unknown November 24, 2024 2:29pm Nicotine abuse Unknown November 24, 2024 2:29pm Obesity Unknown November 24, 2024 2:29pm Papillomatosis Unknown November 24, 2024 2:29pm Tobacco abuse Unknown November 24, 2024 2:29pm Diabetes mellitus Unknown November 24 2:29pm Heart failure Unknown November 24, 2024 2:29pm Ulcer of right lower leg Unknown November 24, 2024 2:29pm Acute exacerbation of chroni c obstructive pulmonary disease Unknown December 27, 2024 11:12am Community acquired pneumonia Unknown Dec 11:12am Diabetes mellitus Unknown December 27, 2024 11:12am Heart failure Unknown December 27, 025 11:12am Lymphedema of both lower extremities Unknown December 27, 2024 11:12am Respiratory failure Unknown December 11:12am Chronic respiratory failure with hypoxia Unknown January 11, 2025 11:06am COPD exacerbation Unknown December 11:06am Dyspnea Unknown January 11, 2025 11:06am Unable to care for self Unknown [facility] 2024 11:06am Functional Status Observation Response Date Recorded Dressing Patient at Baseline December 292024 6:35pm Eating Patient at Baseline December 292024 6:35pm Bathing Patient at Baseline December 292024 6:35pm Disability Status Patient at Baseline December 29, 2024 6:35pm Functional Status Comment [facility] 2024 6:35pm Dressing Patient at Baseline January 172024 6:47pm Eating Patient at Baseline January 172024 6:47pm Bathing Patient at Baseline January 172024 6:47pm Disability Status Patient at Baseline January 17, 2025 6:47pm Dressing Patient at Baseline October 26 3:55pm Eating Patient at Baseline October 26 3:55pm Bathing Patient at Baseline October 26 3:55pm Disability Status Patient at Baseline October 26, 2024 3:55pm Mental Status Observation Response Date Recorded Cognitive Status Patient at Baseline December 192024 6:35pm Cognitive Status Patient at Baseline December 212024 6:47pm Cognitive Status Patient at Baseline October 26, 2 025 3:55pm Cognitive/Mental Status Assessments Assessments Diagnosis Onset Date Resolution Status Admit Date Acute hypercapnic respirator y failure inactive October 23, 2024 9 :15pm Acute hypokalemia inactive October 9:15pm Acute kidney injury inactive October 23, 2024 9:15pm Chronic respiratory failure with hypoxia and hypercapnia inactive Oct 9:15pm Leukocytosis inactive October 23 9:15pm Nicotine addiction inactive October 232024 9:15pm Pneumonia inactive October 23, 2024 9:15pm Pulmonary hypertension inactive 2024 9:15pm UTI (urinary tract infection) inacti ve October 23, 2024 9:15pm Wound of right lower extremity inact sarah October 23, 2024 9:15pm Leg ulcer, left acute November 2:29pm Nonadherence to medical treatment acute November 24, 2024 2:29pm PAD (peripheral artery disease) acute November 24, 2024 2:29pm PVD (peripheral vascular disease) acute November 24, 2024 2:29pm Ulcer of left heel acute November 24, 2024 2:29pm Ulcer of right heel acute 2024 2:29pm Hyperkeratosis chronic November 2:29pm Lymphedema of both lower extremities chronic November 24, 2024 2:29pm Nicotine abuse chronic November 2:29pm Obesity chronic November 24 2:29pm Papillomatosis chronic November 2:29pm Tobacco abuse chronic November 24, 2024 2:29pm Diabetes mellitus resolved November 24, 2024 2:29pm Heart failure resolved November 24, 2024 2:29pm Ulcer of right lower leg resolved November 24, 2024 2:29pm Acute exacerbation of chroni c obstructive pulmonary disease resolved Se ptember 2024 11:12am Community acquired pneumonia resolve d December 27, 2024 11:12am Diabetes mellitus resolved Septemb er 2024 11:12am Heart failure resolved December 272024 11:12am Lymphedema of both lower extremities resolved December 27, 025 11:12am Respiratory failure resolved Septe er 2024 11:12am Chronic respiratory failure with hypoxia acute January 11, 2025 11:06am COPD exacerbation acute Septemb er 2024 11:06am Dyspnea acute December 11:06am Unable to care for self acute S eptember 2024 11:06am Plan of Treatment Future Tests Future scheduled test information is unavailable Pending Tests Pending diagnostic test information is unavailable Future Visits Future appointment information is unavailable Referrals to Other Providers Reason for Referral Referral Start Date Provider Provider Contact Information Provider Address Post hospital appointment. Transportation will pick you up at this time. [facility] Work Phone: [address] [facility] [phone] Please arrange a follow-up appointment once discharged from SNF. Wendi Curtis NP-C Work Phone: [address] [facility] [address] Post hospital appointment. Please call to reschedule if needed. [facility] Work Phone: [address] [facility] [address] RLE wound [facility] Work Phone: [address] [facility] [phone] Future Procedures Procedure Name Ordered Date Scheduled Date Initiate Home Health December 29, 2024 12:11p m Admit Status Order December 27, 2024 11:12am S eptember 2024 11:12am Discharge Order December 29, 2024 1:24pm Dec 1:24pm Diet Supplement January 12, 2025 10:56am Sep tember 2024 10:56am Admit Status Order January 11, 2025 11:06am January 11, 2025 11:06am Discharge Order January 17, 2025 1:50pm Sept 2024 1:50pm Sodium Chloride 3% Nebule January 16, 2025 1 1:51am January 16, 2025 11:51am Initiate Home Health October 26, 2024 2:19pm Diet Supplement October 25, 2024 12:16pm October 25, 2024 12:16pm Admit Status Order October 23, 2024 9:15pm October 9:16pm Consult to Case Management October 23, 2024 10:55p m October 23, 2024 10:55pm Discharge Order October 26, 2024 2:01pm October 26, 2024 2:01pm Future Medications Future medication information is unavailable Patient Instructions Instruction Admit Date Know your Meds October 23, 2024 9:15p m Know your Meds December 27, 2024 11:12am Hope Pamphlet January 11, 2025 11:06am Goals Acute Goals Author Authored Date Exhibit optimal tissue perfusion * Exhibits adequate oxygenation and ventilation * Exhibits adequate cardiac output * Regains stable cardiac rhythm * Maintains optimal activity level * Maintains balanced intake and output [facility] December 29, 2024 6:37pm Maintain/increase activity levels * Understands factors that may lead to activity intolerance * Helps perform self care activities * Maintains maximum range of motion * Increase/regain muscle mass and strength * Maintains VS WNL during activity * Maintain intact skin integrity Updated: 06/02/2022 [facility] December 29, 2024 6:37pm Absence of new skin breakdow n [facility] December 29, 2024 6:37pm Wound healing [facility] December 29, 2024 6:37pm Fall Prevention 2022 [facility] December 29, 2024 6:37pm Exhibit optimal tissue integrity * Exhibits granulation/healing at site * Exhibits decreased drainage at site * Exhibits no s/s of infection * Exhibits a decrease in lesion size * Maintains nutritional status * Maintains hydration status * Maintains optimal lab values [facility] December 29, 2024 6:37pm Skin integrity intact [facility] December 29, 2024 6:37pm Exhibit optimal tissue perfusion * Exhibits adequate oxygenation and ventilation * Exhibits adequate cardiac output * Regains stable cardiac rhythm * Maintains optimal activity level * Maintains balanced intake and output Raquel Muller [facility] January 12, 2025 5:52am Skin integrity intact [facility] January 17, 2025 6:48pm Maintain/increase activity levels * Understands factors that may lead to activity intolerance * Helps perform self care activities * Maintains maximum range of motion * Increase/regain muscle mass and strength * Maintains VS WNL during activity * Maintain intact skin integrity Updated: 06/02/2022 [facility] January 17, 2025 6:48pm Absence of new skin breakdow n [facility] January 17, 2025 6:48pm Wound healing [facility] January 12, 2025 5:51am Exhibit optimal tissue integrity * Exhibits granulation/healing at site * Exhibits decreased drainage at site * Exhibits no s/s of infection * Exhibits a decrease in lesion size * Maintains nutritional status * Maintains hydration status * Maintains optimal lab values [facility] January 12, 2025 5:51am Fall Prevention 2022 [facility] January 17, 2025 6:48pm Exhibit optimal tissue perfusion * Exhibits adequate oxygenation and ventilation * Exhibits adequate cardiac output * Regains stable cardiac rhythm * Maintains optimal activity level * Maintains balanced intake and output [facility] October 26, 2024 3:57pm Skin integrity intact [facility] October 26, 2024 3:57pm Maintain/increase activity levels * Understands factors that may lead to activity intolerance * Helps perform self care activities * Maintains maximum range of motion * Increase/regain muscle mass and strength * Maintains VS WNL during activity * Maintain intact skin integrity Updated: 06/02/2022 [facility] October 26, 2024 3:57pm Absence of new skin breakdow n [facility] October 26, 2024 3:57pm Wound healing [facility] October 26, 2024 3:57pm Fall Prevention 2022 [facility] October 26, 2024 3:57pm Preferences Type Detail Treatment Intervention Code Status: Full Code Treatment Intervention Code Status: Full Code Treatment Intervention Code Status: DNRC CA without Intubation Treatment Intervention Code Status: Full Code Hospital Discharge Instructions Additional Instructions SNF to manage: -PT/OT to eval and treat -Monitor VS per protocol -Fall precautions -Perform respiratory assessments -Monitor for increased signs of infection -Continue oxygen at 6L NC -- pt wears this chronically -Offload heels every 2 hours -Turn and reposition every 2 hours -Change dressings 3XW: *bilateral lower legs and heels- clean legs and feet with theraworx protect foam, clean wounds( bilateral heels, right leg x 1, left leg x 3 and left great toe) with vashe, wipe free loose debris, apply calcium alginate to wounds, top with abd pads or 4x4s and secure with kerlix then 4 inch roshan wraps from base of toes to 1 inch below knee -Wound care BID: *Theraworx protect foam to groin folds, breast folds -, gluteal cleft and buttocks, apply zinc oxide to buttock and gluteal cleft only -Dietitian recommendations: *Glucerna, 1 container, daily with meal -Care to be managed by SNF providers. Progress Note Author Jossie Vega [facility] Note Date/Time November 24, 2024 3:0 6pm [facility] [address] [place] [address] Wound Center Provider Note Signed Patient: Carmen Tucker MR#: [id number] : 1960 Acct:[id number] Age/Sex: 64 / F Copies to: PEE Spencer NP-C~ HPI Date of Visit Date of Visit: Date of Service: 11/24/2024 Time of Service: 14:52 Narrative HPI: 11/24/2024-Carmen is a 64-year-old female who presents to [facility] wound center for evaluation and treatment of bilateral lower extremity ulcerations, secondary to lymphedema. Patient is well-known to our office and has had multiple ulcerations of the bilateral lower legs that have waxed and waned over the years. Carmen reports that these ulcers most recently reopened within the last month and [facility]. Upon exam, shallow full-thickness ulcers are noted to both the right lower lateral leg and the left lower lateral leg, each comprised of both red moist tissue as well as yellow adherent slough. Periwound to each is hyperpigmented with xerosis and hyperkeratosis. No acute signs or symptoms of infection are present today on exam-no periwound erythema, no increased warmth, no purulence, no malodor, no induration. Patient also has ulcers to the bilateral heels, etiology of either pressure or diabetes, likely combination of both. Both ulcers with shallow full-thickness skin loss are comprised primarily of red, moist tissue. Periwound to each with callus, otherwise intact and without signs or symptoms of infection. To all of the ulcers, we will plan to initiate Vashe cleanse, honey sheet for autolytic debridement, alginate silver for bacteriostatic properties, superabsorber, ABD, and conform. We will also plan to initiate Roshan wrap's for compression. Carmen does continue to smoke tobacco, she is aware that smoking will drastically slow ulcer healing. Healing of the ulcers will be largely dependent on a nutritious diet with adequate protein, controlling edema through elevation and compression,compliance with dressing changes, smoking cessation, adequate diabetic control, and prevention/treatment of infection should it arise. I will plan to see Carmen back in the office in 3 to 4 weeks. Subjective Pain Left Leg: Pain Description: Sharp and Aching Pain Intensity: 7 Right Leg: Pain Description: Sharp and Aching Pain Intensity: 7 Wound/Ulcer History Mode of Arrival/ Bowling Ball Marker: Hospital transport Assistive Device Used Today: Wheelchair Lives with:: Sibling Appetite Description: Within Normal Limits Who helps w/ dressing change?: Home Health Why Do You Need Help?: Can't Reach Ulcer, Limited mobility, Unsafe leave home byself and Taxing effort to leave home Smoking Status: Current every day smoker [facility] Medical History (Updated 11/24/24 @ 14:57 by Jossie Vega APRN) Nicotine addiction Pulmonary hypertension Leukocytosis Acute kidney injury Wound of right lower extremity Chronic respiratory failure with hypoxia and hypercapnia UTI (urinary tract infection) Acute hypokalemia Acute hypercapnic respiratory failure Pneumonia Leg ulcer, left Severe sepsis Septic shock Acute and chronic respiratory failure with hypercapnia Altered mental status UTI (urinary tract infection) Ulcer of left heel ROJAS (nonalcoholic steatohepatitis) Lumbar spondylolysis Lumbar radiculopathy Lumbar degenerative disc disease Hepatitis C Degenerative cervical disc Chronic hypercapnic respiratory failure Chronic back pain Cervical spondylosis Acute cystitis Hypomagnesemia Hypokalemia Septic shock Hypotension Diabetic foot ulcer Urinary tract infection Acute kidney injury Gabapentin overdose Ulcer of right heel On home oxygen therapy Pickwickian syndrome Acute encephalopathy Leg wound, right Acute on chronic respiratory failure with hypoxia and hypercapnia Opioid use disorder Fatty liver PVD (peripheral vascular disease) Atherosclerotic cardiovascular disease Vitamin D deficiency Chronic hepatitis C without hepatic coma Insomnia Anxiety Lymphedema Neuropathy Smoker Acute exacerbation of chronic obstructive pulmonary disease (COPD) Hypertension CHF (congestive heart failure) Diabetes mellitus COPD (chronic obstructive pulmonary disease) Acute exacerbation of chronic obstructive airways disease Small bowel obstruction Surgical History History of tonsillectomy and adenoidectomy Hx of cholecystectomy Hx of removal of ovary Hx of hernia repair Family History Mother Skin cancer Grandparent Stroke Grandparent Heart disease Mother Diabetes Father Cancer Legacy FamHx Problem: Diagnosed with Cancer Family/Other Legacy FamHx Problem: One sister from liver failure Mother Hypertension Asthma Diabetes Son Hypertension Sister Diabetes Hypertension Social History Smoking Status: Current every day smoker Tobacco Type: cigarettes Substance Use Type: None Substance Abuse Comment: Denies current illegal drug use. She is on suboxone. Social History Comments: Patient lives in mobile home with son. Grafts History of Graft History of Graft?: No Exam Physical Exam Vital Signs: Temp Pulse Resp BP O2 Del Method 98.1 F 105 H 24 108/84 Room Air 11/24/24 14:38 11/24/24 14:38 11/24/24 14:38 11/24/24 14:38 11/24/24 14:38 Const General: cooperative, comfortable and no acute distress Nutritional Appearance: obese Orientation: alert, awake and oriented x3 Lower/Upper Extremity Exam Vascular Exam-Edema Right Lower Extremity: Edema Type: Lymphedema Left Lower Extremity: Edema Type: Lymphedema Vascular Exam-Pulses Left Dorsalis Pedis: Pulse Assessment Method: Doppler Left Posterior Tibial: Pulse Assessment Method: Doppler Right Dorsalis Pedis: Pulse Assessment Method: Doppler Right Posterior Tibial: Pulse Assessment Method: Doppler Right Brachial: Pulse Assessment Method: NIBP Objective Meds/Allergies Home Medications albuterol sulfate 90 mcg/actuation aerosol inhaler (ProAir HFA) 2 puff inhalation Q6H PRN Shortness Of Breath 12/25/21 [History Confirmed 11/24/24] empagliflozin 10 mg tablet (Jardiance) 10 mg PO DAILY 01/22/23 [History Confirmed 11/24/24] fluticasone fur. 200 mcg-umeclid 62.5 mcg-vilant 25 mcg inhalat.powder (Trelegy Ellipta) 1 inh inhalation DAILY 01/22/23 [History Confirmed 11/24/24] atorvastatin 40 mg tablet 40 mg PO DAILY 09/01/23 [History Confirmed 11/24/24] furosemide 20 mg tablet 20 mg PO DAILY 09/29/23 [History Confirmed 11/24/24] Held on 10/26/24. Instructions: hold for 3 days, then resume cetirizine 10 mg tablet (24Hour Allergy) 10 mg PO DAILY PRN allergy symptoms 10/27/23 [History Confirmed 11/24/24] glipizide 10 mg tablet 10 mg PO DAILY 10/27/23 [History Confirmed 11/24/24] tirzepatide 2.5 mg/0.5 mL subcutaneous pen injector (Mounjaro) 10 mg subcut QWEEK 10/27/23 [History Confirmed 11/24/24] ferrous sulfate 325 mg (65 mg iron) tablet,delayed release 325 mg PO Q48H 360 days #0 tabs 01/08/24 [Rx Confirmed 11/24/24] paroxetine HCl 30 mg tablet 30 mg PO DAILY 07/31/24 [History Confirmed 11/24/24] buprenorphine 8 mg-naloxone 2 mg sublingual film 1 film sublingual BID Addiction3 days #6 ea 08/05/24 [Rx Confirmed 11/24/24] nicotine 21 mg/24 hr daily transdermal patch 21 mg transdermal DAILY 30 days #30ea 08/05/24 [Rx Confirmed 11/24/24] alprazolam 0.25 mg tablet 0.25 mg PO Q12HR PRN anxiety 3 days #6 tabs 08/08/24 [Rx Confirmed 11/24/24] potassium chloride 20 mEq tablet,extended release 20 meq PO DAILY #30 tabs 08/10/24 [Rx Confirmed 11/24/24] pregabalin 75 mg capsule 150 mg PO TID 10/23/24 [History Confirmed 11/24/24] promethazine 25 mg tablet 25 mg PO DAILY 10/23/24 [History Confirmed 11/24/24] unable 1 tab .Route DIRECTED 10/23/24 [History Confirmed 10/23/24] magnesium oxide 400 mg (241.3 mg magnesium) tablet 400 mg PO BID 30 days #60 tabs 10/26/24 [Rx Confirmed 11/24/24] Allergies bee venom protein (honey bee) Allergy (Verified 10/23/24 15:52) Anaphylaxis Iodinated Contrast Media (Iodine based Contrast Media) Allergy (Verified 10/23/24 15:52) Anaphylaxis Wound/Ulcer Right Lower Leg: Type: Lymphedema Thickness: Skin Breakdown Bed Appearance: Beefy Red, [place] and Yellow Percent of Wound Bed Granulated/Red: 75 Percent of Devitalized: 25 Length (cm): 2.3 Width (cm): 7.4 Depth (cm): 0.1 CM Sq: 17.020 Surrounding Tissue Appearance: Hyperpigmented Surrounding Tissue Temp: Warm Drainage Amount: Moderate Drainage Description: Serosanguineous Drainage Odor: No Odor Right Heel: Type: Lymphedema Thickness: Skin Breakdown Bed Appearance: Beefy Red and Yellow Percent of Wound Bed Granulated/Red: 90 Percent of Devitalized: 10 Length (cm): 0.9 Width (cm): 0.9 Depth (cm): 0.2 CM Sq: 0.810 Surrounding Tissue Appearance: Callous Surrounding Tissue Temp: Warm Drainage Amount: Moderate Drainage Description: Serosanguineous Drainage Odor: No Odor Left Heel: Type: Diabetic vs. Pressure Thickness: Full Bed Appearance: Beefy Red and Yellow Percent of Wound Bed Granulated/Red: 90 Percent of Devitalized: 10 Length (cm): 0.3 Width (cm): 0.8 Depth (cm): 0.2 CM Sq: 0.240 Surrounding Tissue Appearance: Callous Drainage Amount: Moderate Drainage Description: Serosanguineous Drainage Odor: No Odor Left Lower Leg: Type: Diabetic vs. Pressure Thickness: Full Bed Appearance: Beefy Red and Yellow Percent of Wound Bed Granulated/Red: 25 Percent of Devitalized: 75 Length (cm): 3.3 Width (cm): 3.8 Depth (cm): 0.1 CM Sq: 12.540 Surrounding Tissue Appearance: Hyperpigmented Surrounding Tissue Temp: Warm Drainage Amount: Moderate Drainage Description: Serosanguineous Drainage Odor: No Odor Results Height: 5 ft 8 in Weight: 104.326 kg Body Mass Index: 34.9 Assessment/Plan Assessment/Plan (1) Leg ulcer, left: Code(s): L97.929 - Non-pressure chronic ulcer of unspecified part of left lower leg with unspecified severity (2) Ulcer of right lower leg: Qualifiers: Non-pressure ulcer stage: with fat layer exposed Qualified Code(s): L97.912 - Non-pressure chronic ulcer of unspecified part of right lower leg withfat layer exposed Code(s): L97.919 - Non-pressure chronic ulcer of unspecified part of right lower leg withunspecified severity (3) Ulcer of left heel: Qualifiers: Non-pressure ulcer stage: limited to breakdown of skin Qualified Code(s): L97.421 - Non-pressure chronic ulcer of left heel and midfoot limited to breakdown of skin Code(s): L97.429 - Non-pressure chronic ulcer of left heel and midfoot with unspecified severity (4) Ulcer of right heel: Code(s): L97.419 - Non-pressure chronic ulcer of right heel and midfoot with unspecified severity (5) Lymphedema of both lower extremities: Code(s): I89.0 - Lymphedema, not elsewhere classified (6) Diabetes mellitus: Code(s): E11.9 - Type 2 diabetes mellitus without complications (7) PAD (peripheral artery disease): Code(s): I73.9 - Peripheral vascular disease, unspecified (8) Tobacco abuse: Code(s): Z72.0 - Tobacco use (9) PVD (peripheral vascular disease): Code(s): I73.9 - Peripheral vascular disease, unspecified (10) Heart failure: Code(s): I50.9 - Heart failure, unspecified (11) Nonadherence to medical treatment: Code(s): Z91.199 - Patient's noncompliance with other medical treatment and regimen due to unspecified reason (12) Papillomatosis: Code(s): D36.9 - Benign neoplasm, unspecified site (13) Hyperkeratosis: Code(s): L85.9 - Epidermal thickening, unspecified (14) Obesity: Code(s): E66.9 - Obesity, unspecified (15) Nicotine abuse: Code(s): Z72.0 - Tobacco use Plan See orders and HPI. Time spent with patient Time Spent With Patient (min): 20 Dictated By: Jossie Vega APRN DD/ [id number] Signed By: <Electronically signed by PEE Vega> 11/24/24 2692
[2025-01-26 13:35] LABS: Potassium 4.2 mmol/L (3.5-5.1)
== END 2025-01-26 12:52 | disposition home or self-care (01) ==
LOC: LAB 12:51
PROVIDERS: PCP Internal Medicine; Visit Provider Internal Medicine
DX: R79.89 Other specified abnormal findings of blood chemistry (principal)
CPT/HCPCS: 36415; 84132